=== PATIENT | female | born 1955 | race African-American/Black ===

== ENCOUNTER 2016-08-17 13:58 | Inpatient (IN) ==
[2016-08-17] MEDS ORDERED: PIPERACILLIN/TAZOBACTAM 3,375 MG in SODIUM CHLORIDE 0.9% 100 ML IV STA (14:29)
[2016-08-17] MEDS ORDERED: SODIUM CHLORIDE 0.9% 500 ML IV STA (14:29)
[2016-08-17] MEDS ORDERED: ALBUTEROL/IPRATROPIUM 3 ML NEB RESP TX STA (14:29)
--- NOTE | 2016-08-17 14:51 | XRay Report ---
XR chest 1V Indication: Shortness of breath. Fever. Chest one view: Comparison 07/08/16. Borderline cardiomegaly, calcified tortuosity thoracic aorta and mild hilar prominence is stable. There is continued interstitial prominence of the lungs diffusely, with scarring or atelectasis at the right lung base. No new infiltrates are seen. Degenerative changes of the shoulders remains severe. Impression: No acute cardio pulmonary disease with chronic changes described above, stable since 07/08/16. PROCEDURE INTERPRETED AT [facility] DEPARTMENT OF RADIOLOGY Final Report Signed by: Yong Deng M.D.
--- NOTE | 2016-08-17 14:52 | Fluoroscopy Report ---
FL injection GI tube Indication: Replaced PEG tube. Abdomen 2 views: Initial net front end developer image shows a unopacified gastrostomy feeding tube in the [id number]. The second image shows contrast injection into the feeding tube with filling of the gastric lumen and first and second segments of the duodenum. No spillage identified. Impression: Intraluminal injection of contrast. PROCEDURE INTERPRETED AT [facility] DEPARTMENT OF RADIOLOGY Final Report Signed by: Yong Deng M.D.
--- NOTE | 2016-08-17 14:58 | Emergency Department Note ---
[place], am scribing for, and in the presence of, Rhett Singh MD 14:49. [place] Bridges Charles R, MD, personally performed the services described in this documentation, ascribed by Carol Crenshaw in my presence, and it is both accurate and complete 458 . Arrival - Arrival Chief Complaint: Non-Specific Stated Complaint: peg tube problem ED Nursing Triage Note: PEG TUBE PLACED THIS SUNDAY, PT WAS SENT BACK TO ER DUE TO ECF NURSE STATED THAT HER PEG TUBE BULB WAS DEFLATED AND FEVER, PT NONVERBAL, BASELINE MENTAL STATUS PER ECF STAFF Mode of Arrival: Stretcher Limitations: No Limitations Source: EMS, Old Records Reviewed, RN Notes Reviewed Time Seen by Provider: 08/17/16 14:28 - History of Present Illness HPI Narrative: This is a 61 y/o female,who presents to the ED by EMS for further elevation of PEG Tube. Pt is non-verbal at this time, this is her normal baseline. Per ECF nurse, pt had a PEG Tube placed on 08/15/2016. She was sent back to [facility] shelter. Her ECF nurse states the PEG Tube bulb was deflated. She states pt has had a fever. Pt has no other complaints/pain in the ED at this time. Pt has a PMHx of CVA, HTN, A-fib, cardiomyopathy with Hx of EF, IDDM, dyslipidemia, recurring UTIs, GERD, and joint effusion. Pt denies a surgical Hx. Pt has a family medical Hx of heart disease and HTN. Onset (ago): day(s) (Started 3 days ago) Consistency: constant Severity: moderate Allergies/Adverse Reactions: Allergies Allergy/AdvReac Type Severity Reaction Status Date / Time No Known Allergies Allergy Verified 08/17/16 14:19 Home Medications: Home Medications Medication Instructions Recorded Confirmed Type Albuterol Neb [Proventil Neb] 1.25 mg RESP TX RT Q6H PRN neb 12/30/14 08/17/16 Rx Insulin Glargine [Lantus] 20 unit SUBCUT BEDTIME unit 12/30/14 08/17/16 Rx Insulin Lispro [HumaLOG] See Protocol SUBCUT ACHS ml 12/30/14 08/17/16 Rx Pravastatin [Pravachol] 20 mg PEG BEDTIME tablet 12/30/14 08/17/16 Rx Acetaminophen 325 mg PEG Q8H PRN 06/03/16 08/17/16 History Aspirin Chew Tab 81 mg PEG DAILY 06/03/16 08/17/16 History Cholecalciferol [Vitamin D3] 1,000 unit PEG DAILY 06/03/16 08/17/16 History Digoxin Tab [Lanoxin Tab] 0.125 mg PEG DAILY@1300 06/03/16 08/17/16 History Diltiazem Tab [Cardizem Tab] 60 mg PEG QID 06/03/16 08/17/16 History Esomeprazole Magnesium [Nexium] 40 mg PEG DAILY 06/03/16 08/17/16 History Lactulose Liquid [Chronulac] 30 ml PEG Q8H PRN 06/03/16 08/17/16 History Magnesium Hydroxide Susp [Milk of 30 ml PEG DAILY PRN 06/03/16 08/17/16 History Magnesia] Metoprolol Tartrate Tab [Lopressor 50 mg PEG BID 06/03/16 08/17/16 History Tab] Multivitamin [Multivitamins] 1 each PEG DAILY 06/03/16 08/17/16 History Warfarin Sodium 3 mg PEG 1800 06/03/16 08/17/16 History Warfarin [Coumadin] 5 mg PEG DAILY@1800 06/03/16 08/17/16 History levETIRAcetam LIQUID [Keppra 250 mg PEG BID #120 ml 06/05/16 08/17/16 Rx Liquid] Review of System - Review of System 12 point system: reviewed and no additional remarkable complaints except as stated - Review of System Constitutional: Present: fever Gastrointestinal: Present: other (PEG tube defalted) Medical,Surgical,& Family Hx - Medical History Cardio: History of: Cardiac Dysrhythmia (atrial fibrillation), CHF (EF 40% 1015) , Hypertension, Cardiovascular Problems (cardiomyopathy with history of EF of 40 % April 2014) Neurology: History of: Cerebrovascular Accident No history of: Seizures Endocrine: History of: Diabetes Mellitus (IDDM), Dyslipidemia Rheumatology: History of;: Rheumatological Problems (allegedly has arthritis and joint pain she is contracted) Genitourinary: History of: Recurring Urinary Tract Infections Gastrointestinal: History of: GERD Musculoskeletal: History of: Musculoskeletal Problems (Joint effusion) - Family History Family History: Reports;: Family Diabetes, Family Hypertension - Social History Smoking Status: Unknown if ever smoked Exam Vital Signs: Vital Signs Temperature 100.9 F H 08/17/16 14:11 Pulse Rate 147 H 08/17/16 15:03 Respiratory Rate 24 08/17/16 15:03 Blood Pressure 130/90 08/17/16 14:11 O2 Sat by Pulse Oximetry 100 08/17/16 15:03 - General General appearance: alert, in no apparent distress, other (Septic appearing, Aphasic) - Head Head exam: Present: atraumatic, normocephalic, normal inspection - Eye Eye exam: Present: normal appearance, PERRL, EOMI - ENT ENT exam: Present: mucous membranes dry - Neck Neck exam: Present: normal inspection, full ROM, trachea midline. Absent: tenderness, lymphadenopathy, thyromegaly - Chest Chest inspection: Present: normal inspection. Absent: symmetric chest wall rise , tenderness, rash, abscess - Respiratory Respiratory exam: Present: rhonchi (Bilateral ) - Cardiovascular Cardiovascular exam: Present: tachycardia - Abdominal Exam Abdominal exam: Present: soft, distention. Absent: tenderness, guarding, rebound, rigidity - Extremities Exam Extremities exam: Present: normal inspection, full ROM, normal capillary refill. Absent: tenderness, pedal edema, joint swelling, calf tenderness - Back Exam Back exam: Present: normal inspection, full ROM. Absent: tenderness, muscle spasm, rashes - Neurological Exam Neurological exam: Present: alert. Absent: normal gait, motor sensory deficit - Psychiatric Psychiatric exam: Present: normal affect, normal mood. Absent: agitated, anxious - Skin Skin exam: Present: warm, intact, normal color. Absent: diaphoresis Course Course Narrative: Feeding tube is placed in the correctly in the stomach - Consultations Consultation #1: Hospitalist will admit patient Time: 15:07 Procedures - Feeding Tube Replacement Tube Used for Reinsertion: [place] Tube Size (F): 20 Tube Secured by: tape/dressing Patient Tolerated Procedure: well, no complications Results - Labs CBC & BMP: 08/17/16 15:06 08/17/16 15:06 Lab Results: I have reviewed the patients labs Critical Care Time Critical Care Time: Yes Total Critical Care Time: 60 Disposition Clinical Impression: Fever, Sepsis, aspiration, PEG tube malfunction, Hypernatremia, Elevated troponin, Acute PR Case discussed with: patient Disposition: Still a Patient Condition: Guarded Time of Disposition: 15:11
[2016-08-17] MEDS ORDERED: ACETAMINOPHEN 325 MG SUPP RECTAL PRN (15:25)
[2016-08-17] MEDS ORDERED: ONDANSETRON 4 MG/2 ML VIAL IV PRN (15:26)
[2016-08-17 15:30] LABS: INR 1.3; PT Patient Result 13.9 SECS
--- NOTE | 2016-08-17 15:39 | EKG Report ---
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
[2016-08-17] MEDS ORDERED: METOPROLOL TARTRATE 5 MG/5 ML VIAL IV STA (15:41)
[2016-08-17] MEDS ORDERED: SODIUM CHLORIDE 0.9% 1,000 ML IV ONE (15:41)
[2016-08-17 15:43] LABS: Basophils % 0.3 % (0.0-0.8); Eosinophils # 0.1 10*3/uL (0.0-0.87); Hemoglobin 9.8 GM/DL (12.0-16.0); Immature Granulocytes % 0.4 %; Immature Granulocytes Absolute 0.04 #; Lymphocytes # 2.4 10*3/uL (1.4-4.0); Mean Corpuscular Hemoglobin 27 PG (27-34); Mean Corpuscular Volume 94.9 FL (87-102); Mean Platelet Volume 13.1 FL (9.6-12.0); Monocytes # 0.9 10*3/uL (0.11-0.8); Monocytes % 8.3 % (1.7-12.7); NRBC # 0.02 10*3/uL; Neutrophils # 7.6 10*3/uL (1.4-7.4); Platelet Count 187 T/CUMM (130-400); Red Blood Count 3.69 MC/CUMM (3.8-5.5); Red Cell Distribution Width 19.2 % (9.3-17.3); White Blood Count 11.1 T/CUMM (4-12)
[2016-08-17] MEDS ORDERED: PIPERACILLIN/TAZOBACTAM 3,375 MG VIAL IV ONE (15:43)
[2016-08-17 15:46] LABS: Albumin 3.1 G/DL (3.4-5.0); Bilirubin,Total 0.4 MG/DL (0.2-1.0); Calcium 9.1 MG/DL (8.5-10.1); Osmolality,Calculated 329.6 MOS/KG (273-304); Potassium 4.6 MMOL/L (3.5-5.1); Total Protein 8.5 G/DL (6.4-8.3)
--- NOTE | 2016-08-17 15:46 | Hospitalist History & Physical ---
Assessment and Plan - Time spent with patient Time spent with patient: Greater than 30 minutes (1) SIRS (systemic inflammatory response syndrome) Status: Acute Assessment and plan: Given her history of malfunctioning pain wondering if she possibly aspirated initial chest x-ray is negative. Patient is very tachycardic with a heart rate of 150s EKG revealed some tachycardia with a flutter appearance. At this time she was given a dose of Zosyn emergency department I will continue for now she was febrile with a documented temperature at the [facility] of 102.7 and repeat to produce you have 100.9. Will obtain blood cultures and continue to monitor along with broad-spectrum antibiotics. Current Visit: Yes (2) Atrial fibrillation Status: Chronic Assessment and plan: She does have history of chronic atrial fibrillation on chronic anticoagulation. EKG revealed irregularly rhythm with tachycardia concerning for a flutter. We'll give another bolus of normal saline just in case she is septic and a one-time dose of Lopressor to see if we can get her heart rate slowed down to get a repeat EKG to determine actual rhythm. Current Visit: No Qualifiers: Atrial fibrillation type: chronic Qualified Code(s): I48.2 - Chronic atrial fibrillation (3) Malfunction of percutaneous endoscopic gastrostomy (PEG) tube Status: Acute Current Visit: Yes (4) History of CVA (cerebrovascular accident) Status: Chronic Current Visit: No (5) Elevated troponin Status: Acute Assessment and plan: She likely has demand ischemia appears that she is clinically dry on exam and labs confirm with elevation and be in along with her having elevated sodium. She is arterial colon. Will continue her aspirin and beta michell per her PEG tube. Her INR is not therapeutic we'll give her Lovenox and also given a one- time dose of Plavix. I do not feel like she would be good candidate for any type of invasive procedures. Will discuss with family the possibility of hospice. Current Visit: Yes (6) Dehydration with hypernatremia Status: Acute Assessment and plan: Action is clinically dry with elevated sodium level. I doubt if she is getting any free water at the [facility]. I will start her on dextrose water along with free water per her PEG tube. Current Visit: Yes History of Present Illness Chief complaint: fever with elevated heart rate and disloged PEG History of present illness: Ms. Marquez is a 61 year old female several comorbidities of hypertension hyperlipidemia congestive heart failure with ejection fraction around 35-40%, history of CVA with complete expressive aphasia who was sent from the [facility] for dislodged PE. Also, there is suspicion of her being septic as there she had a documented temperature of 102.7 and was found to be tachycardic with a heart rate greater than 100. It appears that she was just discharged from here where she recently had her PEG tube replaced. Apparently it it become dislodged the [facility] and was replaced with a [place] catheter. Because of her history of CAD and complete expressive aphasia I am not up able to obtain a complete history from patient. History is obtained from [facility] and emergency room records. In the emergency room apartment she did have a temperature of 100.9 and was also found to be tachycardic with a heart rate in the 150s. She is already been given half liter of normal saline bolus and still has a heart rate around 150s. At this time an EKG had not been done. Home Medications Medication Instructions Recorded Confirmed Type Albuterol Neb [Proventil Neb] 1.25 mg RESP TX RT Q6H PRN neb 12/30/14 08/17/16 Rx Insulin Glargine [Lantus] 20 unit SUBCUT BEDTIME unit 12/30/14 08/17/16 Rx Insulin Lispro [HumaLOG] See Protocol SUBCUT ACHS ml 12/30/14 08/17/16 Rx Pravastatin [Pravachol] 20 mg PEG BEDTIME tablet 12/30/14 08/17/16 Rx Acetaminophen 325 mg PEG Q8H PRN 06/03/16 08/17/16 History Aspirin Chew Tab 81 mg PEG DAILY 06/03/16 08/17/16 History Cholecalciferol [Vitamin D3] 1,000 unit PEG DAILY 06/03/16 08/17/16 History Digoxin Tab [Lanoxin Tab] 0.125 mg PEG DAILY@1300 06/03/16 08/17/16 History Diltiazem Tab [Cardizem Tab] 60 mg PEG QID 06/03/16 08/17/16 History Esomeprazole Magnesium [Nexium] 40 mg PEG DAILY 06/03/16 08/17/16 History Lactulose Liquid [Chronulac] 30 ml PEG Q8H PRN 06/03/16 08/17/16 History Magnesium Hydroxide Susp [Milk of 30 ml PEG DAILY PRN 06/03/16 08/17/16 History Magnesia] Metoprolol Tartrate Tab [Lopressor 50 mg PEG BID 06/03/16 08/17/16 History Tab] Multivitamin [Multivitamins] 1 each PEG DAILY 06/03/16 08/17/16 History Warfarin Sodium 3 mg PEG 1800 06/03/16 08/17/16 History Warfarin [Coumadin] 5 mg PEG DAILY@1800 06/03/16 08/17/16 History levETIRAcetam LIQUID [Keppra 250 mg PEG BID #120 ml 06/05/16 08/17/16 Rx Liquid] Allergies Allergy/AdvReac Type Severity Reaction Status Date / Time No Known Allergies Allergy Verified 08/17/16 14:19 Medical,Surgical,& Family Hx - Medical History Cardio: History of: Cardiac Dysrhythmia (atrial fibrillation), CHF (EF 40% 1014) , Hypertension, Cardiovascular Problems (cardiomyopathy with history of EF of 40 % April 2014) Neurology: History of: Cerebrovascular Accident No history of: Seizures Endocrine: History of: Diabetes Mellitus (IDDM), Dyslipidemia Rheumatology: History of;: Rheumatological Problems (allegedly has arthritis and joint pain she is contracted) Genitourinary: History of: Recurring Urinary Tract Infections Gastrointestinal: History of: GERD Musculoskeletal: History of: Musculoskeletal Problems (Joint effusion) - Surgical History Cardiac Surgeries: Sugical HX of: Cardiac Catheterization Abdominal Surgeries: Surgical HX of: EGD - Family History Family History: Reports;: Family Diabetes, Family Hypertension - Social History Smoking Status: Unknown if ever smoked Frequency of Alcohol Use: None Type of Drug Use: None Marital Status: Lives With:: [facility] Functional capacity: bed bound ROS unobtainable: other (unable to obtain seondary to complete expressive aphasia) Exam - Constitutional Vitals: Period Temp Pulse Resp BP Sys/Jasmine Pulse Ox Last 24 Hr 100.9 F-100.9 F 140-148 24-38 130-130/90-90 97-100 General appearance: no acute distress Exam: chronically deblitated appearing female in ER bed 15 - Head Head exam: Present: normocephalic, atraumatic - Eye Pupils: Present: JUDE - Respiratory Respiratory exam: Present: clear to auscultation bilaterally - Cardiovascular Cardiovascular exam: Present: regular rate and rhythm, tachycardia - GI/Abdominal GI/Abdominal exam: Present: normal bowel sounds, soft - Neurological Exam Neurological exam: Present: alert - Skin Skin exam: Present: warm, intact Results - Labs CBC & BMP: 08/18/16 06:04 08/18/16 06:04 Sepsis - Physical Exam Respiratory exam: clear to auscultation bilaterally Cardiovascular exam: tachycardia
[2016-08-17] MEDS ORDERED: DIGOXIN 0.5 MG/2 ML AMP IV ONE (16:03)
[2016-08-17 16:23] LABS: CKMB % 3.5 %
[2016-08-17 16:26] LABS: Troponin I Only 10.5 NG/ML (0.00-0.045)
[2016-08-17] MEDS ORDERED: ENOXAPARIN 80 MG/0.8 ML SYRINGE SUBCUT STA (16:33)
[2016-08-17] MEDS ORDERED: DIGOXIN 0.5 MG/2 ML AMP ONE (16:41)
[2016-08-17] MEDS ORDERED: METOPROLOL TARTRATE 5 MG/5 ML VIAL IV ONE (16:42)
[2016-08-17] MEDS ORDERED: WARFARIN 3 MG TABLET PEG SCH (19:27)
[2016-08-17] MEDS ORDERED: ALBUTEROL 1.25 MG/3 ML NEB RESP TX PRN (19:27)
[2016-08-17] MEDS ORDERED: DILTIAZEM 50 MG/10 ML VIAL IV STA (19:27)
[2016-08-17] MEDS ORDERED: WARFARIN 5 MG TABLET PEG SCH (19:27)
[2016-08-17 21:08] LABS: CKMB % 3.6 %
[2016-08-17] MEDS: DEXTROSE 5% 1,000 ML IV SCH (21:44)
[2016-08-17] MEDS: PIPERACILLIN/TAZOBACTAM 3,375 MG in SODIUM CHLORIDE 0.9% 100 ML IV SCH (23:06)
[2016-08-17] MEDS: METOPROLOL TARTRATE 25 MG TABLET PEG SCH (23:08)
[2016-08-17] MEDS: PRAVASTATIN 20 MG TABLET PEG SCH (23:08)
[2016-08-17] MEDS: DILTIAZEM 60 MG TABLET PO SCH (23:08)
[2016-08-17] MEDS: levETIRAcetam LIQUID 100 MG/ML 30 ML/BOTTLE PEG SCH (23:08)
[2016-08-18] MEDS: PIPERACILLIN/TAZOBACTAM 3,375 MG in SODIUM CHLORIDE 0.9% 100 ML IV SCH ×4 (00:02→23:48)
[2016-08-18] MEDS ORDERED: ENOXAPARIN 80 MG/0.8 ML SYRINGE SUBCUT SCH (05:00)
[2016-08-18 06:53] LABS: Calcium 8.3 MG/DL (8.5-10.1); Magnesium 2.5 MG/DL (1.8-2.4); Osmolality,Calculated 328.3 MOS/KG (273-304); Potassium 4.1 MMOL/L (3.5-5.1)
[2016-08-18 06:57] LABS: Risk Ratio 2.45
[2016-08-18 07:02] LABS: Basophils % 0.2 % (0.0-0.8); Eosinophils # 0.1 10*3/uL (0.0-0.87); Eosinophils % 0.6 % (0.00-10.9); Hemoglobin 8.4 GM/DL (12.0-16.0); Immature Granulocytes % 0.2 %; Immature Granulocytes Absolute 0.02 #; Lymphocytes # 2.8 10*3/uL (1.4-4.0); Lymphocytes % 28.2 % (21.3-54.2); Mean Corpuscular HGB Conc 27.5 GM/DL (32-36); Mean Corpuscular Hemoglobin 27 PG (27-34); Mean Corpuscular Volume 97.5 FL (87-102); Mean Platelet Volume 12.9 FL (9.6-12.0); Monocytes % 9.9 % (1.7-12.7); NRBC # 0.02 10*3/uL; Neutrophils % 60.9 % (38.7-73.9); Platelet Count 148 T/CUMM (130-400); Red Blood Count 3.14 MC/CUMM (3.8-5.5); Red Cell Distribution Width 19.4 % (9.3-17.3); White Blood Count 9.8 T/CUMM (4-12)
[2016-08-18 07:03] LABS: Troponin I Only 11.8 NG/ML (0.00-0.045)
[2016-08-18 07:04] LABS: Hematocrit 30.6 VOL% (35.7-47.0)
[2016-08-18 07:05] LABS: Hypochromasia 1+
[2016-08-18 07:06] LABS: Macrocytosis 1+; Platelet Estimate Adequate
--- NOTE | 2016-08-18 07:43 | Physician Query Form ---
CLICK EDIT DOCUMENT TO SELECT QUERY ANSWER --> OK --> SIGN Phylicia Goldman RN, CCDS Certified Clinical Fly Worker W) [phone] (f) [phone] [email or web address] PROVIDERS: Make your selection(s) from the choices in EACH section by typing an "x" and enter comments in the comment section. Please use your independent medical judgment in providing your response. This request does not imply that any particular answer is desired or expected. CLINICAL INDICATORS: (Providers should not edit this section) The below diagnosis was documented in the record, but is not consistently noted in subsequent documentation. The medical record indicates that the patient was admitted with a PEG tube malfunction, "very tachycardic with a heart rate of 150s", Impression in the ER acute MT and Troponin of 10.50 that has increased to 11.800. In your clinical opinion can you please clarify if the MT was ? Diagnosis: MT Please clarify the following: ( ) The above diagnosis was monitored, evaluated, and/or treated and is a confirmed diagnosis ( ) The above diagnosis was ruled out ( x) The above diagnosis is still a likely, suspected, probable diagnosis ( ) Other, please specify: ( ) Clinically unable to determine COMMENTS: likely secondary from demand ischemia given her being dehydrated with elevated sodium. Use of terms such as suspected, likely, or probable (associated with a specific diagnosis that is being evaluated, monitored, or treated as if it exists) are acceptable and can be restated in the discharge summary if not ruled out. MTDD
--- NOTE | 2016-08-18 09:22 | Cardiology Consult Note ---
Assessment and Plan - Time spent with patient Time spent with patient: Greater than 30 minutes (Documentation, chart review examination) (1) Dehydration Status: Acute Current Visit: Yes (2) Febrile illness Status: Acute Current Visit: Yes (3) Elevated troponin Status: Acute Assessment and plan: This patient has a history of cardiomyopathy and has severely volume contracted and acutely ill at this time with a modestly elevated troponin in the face of extreme volume contraction and renal insufficiency. This most likely represents type 2 demand ischemia and subsequent non-ST elevation myocardial infarction. I recommend beta-blockers aspirin and supportive measures. She is nonverbal she is DNR she is in the position. No further workup at this time. Current Visit: Yes (4) Hypernatremia Status: Acute Current Visit: Yes (5) Malfunction of percutaneous endoscopic gastrostomy (PEG) tube Status: Acute Current Visit: Yes (6) Atrial fibrillation Status: Chronic Current Visit: No Qualifiers: Atrial fibrillation type: chronic Qualified Code(s): I48.2 - Chronic atrial fibrillation History of Present Illness - Data of Consult Patient: new to practice Consult date: 08/18/16 Requesting Physician: Jessy Colon - Consult Narrative Reason for consult: Abnormal troponin History of present illness: Ms. Marquez is a 61 year old female who is unresponsive in the position when I examined her. Apparently she has had a stroke and relies on a PEG tube for enteral nutrition does not walk. I have reviewed her chart. She has a low ejection fraction of 35% plus or minus according to Dr. Colon's note and is admitted now with malfunctioning PEG tube. She also was found to have a febrile illness. She was tachycardic and had ECGs and troponins. We are asked to see for elevated troponin. The patient is noncommunicative there is no one at the bedside and she is nonambulatory. She is in the position in the right lateral decubitus position and does not respond to verbal stimuli. I have reviewed her ECGs which show what appears to be supraventricular tachycardia it looks as though it sinus heart rate in the low 150s she has some ST elevation that is likely due to rate and LVH. Is not diagnostic of ST elevation myocardial infarction. The patient's troponin is also elevated. She is febrile and has leukocytosis. She also is anemic and appears to be significantly volume contracted with a sodium of 162. Her white cell count has come down since she has been here with antibiotics. CC: Jessy Colon MD - Home Medications and Allergies Home Medications: Home Medications Medication Instructions Recorded Confirmed Type Albuterol Neb [Proventil Neb] 1.25 mg RESP TX RT Q6H PRN neb 12/30/14 08/17/16 Rx Insulin Glargine [Lantus] 20 unit SUBCUT BEDTIME unit 12/30/14 08/17/16 Rx Insulin Lispro [HumaLOG] See Protocol SUBCUT ACHS ml 12/30/14 08/17/16 Rx Pravastatin [Pravachol] 20 mg PEG BEDTIME tablet 12/30/14 08/17/16 Rx Acetaminophen 325 mg PEG Q8H PRN 06/03/16 08/17/16 History Aspirin Chew Tab 81 mg PEG DAILY 06/03/16 08/17/16 History Cholecalciferol [Vitamin D3] 1,000 unit PEG DAILY 06/03/16 08/17/16 History Digoxin Tab [Lanoxin Tab] 0.125 mg PEG DAILY@1300 06/03/16 08/17/16 History Diltiazem Tab [Cardizem Tab] 60 mg PEG QID 06/03/16 08/17/16 History Esomeprazole Magnesium [Nexium] 40 mg PEG DAILY 06/03/16 08/17/16 History Lactulose Liquid [Chronulac] 30 ml PEG Q8H PRN 06/03/16 08/17/16 History Magnesium Hydroxide Susp [Milk of 30 ml PEG DAILY PRN 06/03/16 08/17/16 History Magnesia] Metoprolol Tartrate Tab [Lopressor 50 mg PEG BID 06/03/16 08/17/16 History Tab] Multivitamin [Multivitamins] 1 each PEG DAILY 06/03/16 08/17/16 History Warfarin Sodium 3 mg PEG 1800 06/03/16 08/17/16 History Warfarin [Coumadin] 5 mg PEG DAILY@1800 06/03/16 08/17/16 History levETIRAcetam LIQUID [Keppra 250 mg PEG BID #120 ml 06/05/16 08/17/16 Rx Liquid] Allergies/Adverse Reactions: Allergies Allergy/AdvReac Type Severity Reaction Status Date / Time No Known Allergies Allergy Verified 08/17/16 14:19 ROS unobtainable: due to mental status Medical,Surgical,& Family Hx - Medical History Cardio: History of: Cardiac Dysrhythmia (atrial fibrillation), CHF, Hypertension , Cardiovascular Problems (cardiomyopathy with history of EF of 40% April 2014 ) Neurology: History of: Cerebrovascular Accident No history of: Seizures Endocrine: History of: Diabetes Mellitus (IDDM), Dyslipidemia Rheumatology: History of;: Rheumatological Problems (allegedly has arthritis and joint pain she is contracted) Genitourinary: History of: Recurring Urinary Tract Infections Gastrointestinal: History of: GERD Musculoskeletal: History of: Musculoskeletal Problems (Joint effusion) - Surgical History Cardiac Surgeries: Sugical HX of: Cardiac Catheterization Abdominal Surgeries: Surgical HX of: EGD - Family History Family History: Reports;: Family Diabetes, Family Hypertension - Social History Smoking Status: Unknown if ever smoked Frequency of Alcohol Use: None Type of Drug Use: None Functional capacity: bed bound Physical Examination Vital Signs Temp Pulse Resp BP Pulse Ox 100.9 F H 140 H 38 H 130/90 98 08/17/16 14:11 08/17/16 14:11 08/17/16 14:11 08/17/16 14:11 08/17/16 14:11 General: Present: Other (Chronically ill appearing in the position with very dry membranes and very poor skin turgor) HEENT: Present: Other (Temporal atrophy very dry mucous membranes she resists when I try to open her eyelids.) Cardiac: Present: Regular Rate, S1/S2, Tachycardia (Right was about 140. PMI appears to be laterally displaced anterior precordium is hyperdynamic) Lungs: Present: Other (Clear with quiet respirations noncooperative for full exam) Neuro: Present: Other (No significant neurologic response with verbal stimuli noxious stimuli gives a grimace) Gait: Present: Other (Unable to ambulate) Extremities: Present: Other (Contracted in both heels stress bilaterally. I did not undress the) Result/EKG - Labs CBC & BMP: 08/18/16 06:04 08/18/16 06:04 Labs: Laboratory Results - last 24 hr 08/17/16 08/17/16 08/18/16 19:37 20:04 06:04 WBC RBC Hgb Hct MCV MCH MCHC RDW Plt Count MPV Neut % (Auto) Lymph % (Auto) [place] % (Auto) Eos % (Auto) Baso % (Auto) Neut # (Auto) Lymph # (Auto) [place] # (Auto) Eos # (Auto) Baso # (Auto) Immature Gran % Nucleated RBC % Immature Gran # Nucleated RBCs # Platelet Estimate Hypochromasia Macrocytosis Morphology Comment Sodium Potassium Chloride Carbon Dioxide Anion Gap BUN Creatinine GFR Calculation BUN/Creatinine Ratio Glucose POC Glucose 132 H Calculated Osmolality Calcium Magnesium Total Creatine Kinase 574 H CK-MB (CK-2) 20.5 H CK and CKMB Interp 3.6 Troponin I Triglycerides 110 Cholesterol 103 LDL Cholesterol 53.0 VLDL Cholesterol 22.0 HDL Cholesterol 42 Heart Disease Risk Ratio 2.45 08/18/16 08/18/16 08/18/16 06:04 06:04 06:04 WBC 9.8 RBC 3.14 L Hgb 8.4 L Hct 30.6 L MCV 97.5 MCH 27 MCHC 27.5 L RDW 19.4 H Plt Count 148 D MPV 12.9 H Neut % (Auto) 60.9 Lymph % (Auto) 28.2 [place] % (Auto) 9.9 Eos % (Auto) 0.6 Baso % (Auto) 0.2 Neut # (Auto) 6.0 Lymph # (Auto) 2.8 [place] # (Auto) 1.0 H Eos # (Auto) 0.1 Baso # (Auto) 0.0 Immature Gran % 0.2 Nucleated RBC % 0.2 Immature Gran # 0.02 Nucleated RBCs # 0.02 Platelet Estimate Adequate Hypochromasia 1+ Macrocytosis 1+ Morphology Comment Sodium 162 H* Potassium 4.1 Chloride 129 H Carbon Dioxide 24 Anion Gap 13.1 BUN 34 H D Creatinine 1.20 H GFR Calculation 64 BUN/Creatinine Ratio 28.00 H Glucose 114 H POC Glucose Calculated Osmolality 328.3 H Calcium 8.3 L Magnesium 2.5 H Total Creatine Kinase 794 H D CK-MB (CK-2) CK and CKMB Interp Troponin I 11.800 H Triglycerides Cholesterol LDL Cholesterol VLDL Cholesterol HDL Cholesterol Heart Disease Risk Ratio - EKG EKG results: interpreted by me (Looks like sinus tachycardia or some type of supraventricular tachycardia) Specialty Discharge - Follow Up or Referrals
[2016-08-18] MEDS: levETIRAcetam LIQUID 100 MG/ML 30 ML/BOTTLE PEG SCH ×2 (09:49→21:12)
[2016-08-18] MEDS: METOPROLOL TARTRATE 25 MG TABLET PEG SCH ×2 (09:50→21:13)
[2016-08-18] MEDS: DILTIAZEM 60 MG TABLET PO SCH ×4 (09:50→21:13)
[2016-08-18] MEDS: CLOPIDOGREL 75 MG TABLET PO SCH (09:51)
[2016-08-18] MEDS: ASPIRIN CHEW 81 MG TABLET PO SCH (09:51)
--- NOTE | 2016-08-18 11:32 | Hospitalist Progress Note ---
Assessment and Plan (1) SIRS (systemic inflammatory response syndrome) Status: Acute Assessment and plan: Given her history of malfunctioning pain wondering if she possibly aspirated initial chest x-ray is negative. Patient is very tachycardic with a heart rate of 150s EKG revealed some tachycardia with a flutter appearance. At this time she was given a dose of Zosyn emergency department I will continue for now she was febrile with a documented temperature at the assisted of 102.7 and repeat to produce you have 100.9. Will obtain blood cultures and continue to monitor along with broad-spectrum antibiotics. 08/18/16: There is still no obvious source of infection. She was placed on Zosyn. It appears that she did have elevation in her cardiac enzymes which I do agree with cardiology this is likely demand ischemia. We'll continue Zosyn for now. We did speak with family and they've agreed to pursue hospice which I agree with. Current Visit: Yes (2) Atrial fibrillation Status: Chronic Assessment and plan: She does have history of chronic atrial fibrillation on chronic anticoagulation. EKG revealed irregularly rhythm with tachycardia concerning for a flutter. We'll give another bolus of normal saline just in case she is septic and a one-time dose of Lopressor to see if we can get her heart rate slowed down to get a repeat EKG to determine actual rhythm. Current Visit: No Qualifiers: Atrial fibrillation type: chronic Qualified Code(s): I48.2 - Chronic atrial fibrillation (3) Malfunction of percutaneous endoscopic gastrostomy (PEG) tube Status: Acute Current Visit: Yes (4) History of CVA (cerebrovascular accident) Status: Chronic Current Visit: No (5) Dehydration Status: Acute Current Visit: Yes (6) Hypernatremia Status: Acute Assessment and plan: started on D5 as she was given normal saline bolus in the ER Current Visit: Yes (7) Elevated troponin Status: Acute Assessment and plan: likely demand ischemia and already on ASA and a beta michell Current Visit: Yes (8) Encounter for hospice care discussion Status: Acute Current Visit: Yes (9) Transition from hospice to acute care Status: Acute Current Visit: Yes Hospitalist: Subjective Interval history: This 61-year-old female with a history of CVA in the past causing complete expressive aphasia. She was brought in yesterday with a fever and was found to have a heart rate around 155. Her cardiac enzymes returned elevated which cardiology has seen patient thinks this is more demand ischemia in light of her being volume depleted. We did speak with the patient's siblings and they have agreed to make her hospice as overall she has a very poor prognosis. She is arterial aspirin and a beta michell which these will be continued at this time. Exam - Constitutional Vitals: Period Temp Pulse Resp BP Sys/Jasmine Pulse Ox Last 24 Hr 97.5 F-100.6 F 71-128 20-28 95-123/45-60 96-100 General appearance: no acute distress - Head Head exam: Present: normocephalic, atraumatic - Respiratory Respiratory exam: Present: clear to auscultation bilaterally - Cardiovascular Cardiovascular exam: Present: regular rate and rhythm - GI/Abdominal GI/Abdominal exam: Present: hypoactive bowel sounds, soft - Extremities Exam Extremities exam: Present: other (contractures) - Skin Skin exam: Present: warm, dry, other (ulcer of foot) Results - Labs CBC & BMP: 08/18/16 06:04 08/18/16 06:04 Specialty Discharge - Follow Up or Referrals
[2016-08-18] MEDS: DEXTROSE 5% 1,000 ML IV SCH ×2 (11:48→23:49)
[2016-08-18] MEDS: DIGOXIN 0.125 MG TABLET PEG SCH (14:31)
[2016-08-18] MEDS: VANCOMYCIN INJ 1,500 MG in SODIUM CHLORIDE 0.9% 500 ML IV SCH (15:16)
[2016-08-18] MEDS ORDERED: ACETAMINOPHEN 325 MG TABLET ONE (17:01)
[2016-08-18] MEDS: WARFARIN 4 MG TABLET PO SCH (17:10)
[2016-08-18] MEDS ORDERED: ACETAMINOPHEN 325 MG TABLET PO PRN (17:52)
[2016-08-18] MEDS: PRAVASTATIN 20 MG TABLET PEG SCH (21:13)
[2016-08-19 06:03] LABS: Calcium 8.1 MG/DL (8.5-10.1); Magnesium 2.4 MG/DL (1.8-2.4); Osmolality,Calculated 318.9 MOS/KG (273-304); Potassium 4.2 MMOL/L (3.5-5.1)
[2016-08-19] MEDS: PIPERACILLIN/TAZOBACTAM 3,375 MG in SODIUM CHLORIDE 0.9% 100 ML IV SCH ×3 (08:42→22:54)
[2016-08-19] MEDS: METOPROLOL TARTRATE 25 MG TABLET PEG SCH ×2 (08:43→22:55)
[2016-08-19] MEDS: ASPIRIN CHEW 81 MG TABLET PO SCH (08:43)
[2016-08-19] MEDS: DILTIAZEM 60 MG TABLET PO SCH ×4 (08:43→22:55)
[2016-08-19] MEDS: CLOPIDOGREL 75 MG TABLET PO SCH (08:43)
[2016-08-19] MEDS: levETIRAcetam LIQUID 100 MG/ML 30 ML/BOTTLE PEG SCH ×2 (08:44→22:54)
[2016-08-19] MEDS: VANCOMYCIN INJ 1,500 MG in SODIUM CHLORIDE 0.9% 500 ML IV SCH (09:39)
[2016-08-19] MEDS: DEXTROSE 5% 1,000 ML IV SCH (10:57)
[2016-08-19 11:53] LABS: Basophils % 0.3 % (0.0-0.8); Eosinophils # 0.3 10*3/uL (0.0-0.87); Eosinophils % 3.4 % (0.00-10.9); Hematocrit 24.3 VOL% (35.7-47.0); Immature Granulocytes % 0.3 %; Immature Granulocytes Absolute 0.02 #; Lymphocytes % 27.8 % (21.3-54.2); Mean Corpuscular Hemoglobin 27 PG (27-34); Mean Corpuscular Volume 94.9 FL (87-102); Mean Platelet Volume 13.1 FL (9.6-12.0); Monocytes # 0.7 10*3/uL (0.11-0.8); Monocytes % 9.1 % (1.7-12.7); NRBC # 0.02 10*3/uL; Neutrophils # 4.3 10*3/uL (1.4-7.4); Neutrophils % 59.1 % (38.7-73.9); Platelet Count 131 T/CUMM (130-400); Red Blood Count 2.56 MC/CUMM (3.8-5.5); Red Cell Distribution Width 19.1 % (9.3-17.3); White Blood Count 7.3 T/CUMM (4-12)
[2016-08-19 11:59] LABS: Hemoglobin 6.8 GM/DL (12.0-16.0)
[2016-08-19 12:18] LABS: Hypochromasia 1+; Macrocytosis 1+; Platelet Estimate Normal
[2016-08-19 12:24] LABS: Calcium 7.7 MG/DL (8.5-10.1); Osmolality,Calculated 310.3 MOS/KG (273-304); Potassium 4.1 MMOL/L (3.5-5.1)
--- NOTE | 2016-08-19 13:31 | Hospitalist Progress Note ---
Assessment and Plan (1) Sepsis due to Gram negative bacteria Problem details: Blood growing Gram-negative bacteria Status: Acute Current Visit: Yes (2) Debility, unspecified Status: Acute Current Visit: Yes (3) Atrial fibrillation Status: Chronic Current Visit: No Qualifiers: Atrial fibrillation type: chronic Qualified Code(s): I48.2 - Chronic atrial fibrillation (4) Malfunction of percutaneous endoscopic gastrostomy (PEG) tube Status: Acute Assessment and plan: Adjusted and on tube feeding Current Visit: Yes (5) Encounter for hospice care discussion Status: Acute Assessment and plan: We'll discuss with family and case management regarding hospice Current Visit: Yes (6) Elevated troponin Status: Acute Assessment and plan: Seen by cardiology and this could be likely to increased demand ischemia currently due to sepsis and acute kidney insufficiency, continue with medications Current Visit: Yes (7) Dehydration with hypernatremia Status: Acute Current Visit: Yes (8) Arthritis Status: Acute Current Visit: No (9) History of CVA (cerebrovascular accident) Status: Chronic Current Visit: No Hospitalist: Subjective Interval history: No acute events reported overnight. Patient nonverbal and does not follow commands. Family members visiting. ROS unobtainable due to patient's condition. Exam - Constitutional Vitals: Period Temp Pulse Resp BP Sys/Jasmine Pulse Ox Last 24 Hr 98.1 F-101.0 F 67-86 18-20 101-135/45-54 91-99 Exam: Gen: a&ox0, NAD neck: no JVD heart: RRR, IRR lung: cta anteriorly, no wheezing abd: PEG T in place on TF, BS present EXt: Carl dressed distally, in position skin: warm, dry HEENT: PERRL psych: Nonverbal Results - Labs CBC & BMP: 08/19/16 11:26 08/19/16 11:26 Specialty Discharge - Follow Up or Referrals
[2016-08-19] MEDS: DIGOXIN 0.125 MG TABLET PEG SCH (13:38)
[2016-08-19] MEDS: WARFARIN 4 MG TABLET PO SCH (18:18)
[2016-08-19] MEDS: PRAVASTATIN 20 MG TABLET PEG SCH (22:56)
[2016-08-20] MEDS: DEXTROSE 5% 1,000 ML IV SCH ×2 (05:37→18:31)
[2016-08-20] MEDS: VANCOMYCIN INJ 1,500 MG in SODIUM CHLORIDE 0.9% 500 ML IV SCH (05:41)
[2016-08-20 07:41] LABS: Basophils % 0.1 % (0.0-0.8); Eosinophils # 0.3 10*3/uL (0.0-0.87); Eosinophils % 3.5 % (0.00-10.9); Hematocrit 21.8 VOL% (35.7-47.0); Immature Granulocytes % 0.2 %; Immature Granulocytes Absolute 0.02 #; Lymphocytes # 1.8 10*3/uL (1.4-4.0); Lymphocytes % 22.6 % (21.3-54.2); Mean Corpuscular HGB Conc 27.5 GM/DL (32-36); Mean Corpuscular Hemoglobin 27 PG (27-34); Mean Corpuscular Volume 96.9 FL (87-102); Mean Platelet Volume 13.1 FL (9.6-12.0); Monocytes # 0.7 10*3/uL (0.11-0.8); Monocytes % 8.9 % (1.7-12.7); NRBC # 0.03 10*3/uL; Neutrophils # 5.2 10*3/uL (1.4-7.4); Neutrophils % 64.7 % (38.7-73.9); Platelet Count 132 T/CUMM (130-400); Red Blood Count 2.25 MC/CUMM (3.8-5.5); Red Cell Distribution Width 19.2 % (9.3-17.3); White Blood Count 8.1 T/CUMM (4-12)
[2016-08-20 08:06] LABS: Potassium 4.2 MMOL/L (3.5-5.1)
[2016-08-20 08:30] LABS: Elliptocytes Few; Hypochromasia 1+; Platelet Estimate Normal
[2016-08-20] MEDS: PIPERACILLIN/TAZOBACTAM 3,375 MG in SODIUM CHLORIDE 0.9% 100 ML IV SCH ×3 (09:33→23:46)
[2016-08-20] MEDS: levETIRAcetam LIQUID 100 MG/ML 30 ML/BOTTLE PEG SCH ×2 (09:33→22:13)
[2016-08-20] MEDS: DILTIAZEM 60 MG TABLET PO SCH (09:33)
[2016-08-20] MEDS: METOPROLOL TARTRATE 25 MG TABLET PEG SCH ×2 (09:33→22:12)
[2016-08-20] MEDS: CLOPIDOGREL 75 MG TABLET PO SCH (09:33)
[2016-08-20] MEDS: ASPIRIN CHEW 81 MG TABLET PO SCH (09:33)
--- NOTE | 2016-08-20 09:39 | Hospitalist Progress Note ---
Assessment and Plan (1) Sepsis due to Gram negative bacteria Problem details: Blood growing Gram-negative bacteria Status: Acute Assessment and plan: Continue with Antibiotics Current Visit: Yes (2) Debility, unspecified Status: Acute Current Visit: Yes (3) Normocytic anemia Problem details: Worsening this morning. Status: Acute Assessment and plan: No blood thinners or antiplatelet medications. Type and cross on blood transfusion and IV fluid. Discussed with the family goals of care. Check PT and PTT. Current Visit: Yes (4) Atrial fibrillation Status: Chronic Assessment and plan: No anticoagulation Current Visit: No Qualifiers: Atrial fibrillation type: chronic Qualified Code(s): I48.2 - Chronic atrial fibrillation (5) Malfunction of percutaneous endoscopic gastrostomy (PEG) tube Status: Acute Assessment and plan: Adjusted and on tube feeding Current Visit: Yes (6) Encounter for hospice care discussion Status: Acute Assessment and plan: We'll discuss with family and case management regarding hospice Current Visit: Yes (7) Elevated troponin Status: Acute Assessment and plan: Seen by cardiology and this could be likely to increased demand ischemia currently due to sepsis and acute kidney insufficiency, continue with medications Current Visit: Yes (8) Dehydration with hypernatremia Status: Acute Current Visit: Yes (9) History of CVA (cerebrovascular accident) Status: Chronic Current Visit: No (10) Arthritis Status: Acute Current Visit: No Hospitalist: Subjective Interval history: Patient noncommunicative, arousable, no family members present in the room. ROS unobtainable because of the patient's medical condition currently. No acute events reported overnight. Exam - Constitutional Vitals: Period Temp Pulse Resp BP Sys/Jasmine Pulse Ox Last 24 Hr 97.6 F-99.3 F 62-74 18-20 102-135/48-61 95-99 Exam: Gen: a&ox0, NAD neck: no JVD heart: RRR, IRR lung: cta anteriorly, no wheezing abd: PEG T in place on TF, BS present EXt: Carl dressed distally, in position skin: warm, dry HEENT: PERRL psych: Nonverbal Results - Labs CBC & BMP: 08/20/16 06:56 08/20/16 06:56 Specialty Discharge - Follow Up or Referrals
[2016-08-20 10:24] LABS: INR 1.7; PT Patient Result 18.2 SECS; Partial Thromboplastin Time 31.3 SECS (0-40)
[2016-08-20] MEDS ORDERED: SODIUM CHLORIDE 0.9% 250 ML IV PRN (10:27)
[2016-08-20] MEDS ORDERED: PHYTONADIONE 5 MG TABLET PO ONE (15:17)
[2016-08-20] MEDS: DIGOXIN 0.125 MG TABLET PEG SCH (18:32)
[2016-08-20] MEDS: PRAVASTATIN 20 MG TABLET PEG SCH (22:13)
[2016-08-21] MEDS: DEXTROSE 5% 1,000 ML IV SCH (06:53)
[2016-08-21] MEDS ORDERED: VANCOMYCIN INJ 1,500 MG in SODIUM CHLORIDE 0.9% 500 ML IV SCH (09:00)
[2016-08-21] MEDS: PIPERACILLIN/TAZOBACTAM 3,375 MG in SODIUM CHLORIDE 0.9% 100 ML IV SCH ×2 (09:45→15:50)
[2016-08-21] MEDS: METOPROLOL TARTRATE 25 MG TABLET PEG SCH (09:46)
[2016-08-21] MEDS: DIGOXIN 0.125 MG TABLET PEG SCH ×2 (09:46→12:01)
[2016-08-21] MEDS: ASPIRIN CHEW 81 MG TABLET PO SCH (09:46)
[2016-08-21] MEDS: levETIRAcetam LIQUID 100 MG/ML 30 ML/BOTTLE PEG SCH (09:47)
--- NOTE | 2016-08-21 11:18 | Physician Query Form ---
CLICK EDIT DOCUMENT TO SELECT QUERY ANSWER --> OK --> SIGN Phylicia Goldman RN, CCDS Certified Clinical Math And Physics Instructor W) [phone] (f) [phone] [email or web address]: Make your selection(s) from the choices in EACH section by typing an "x" and enter comments in the comment section. Please use your independent medical judgment in providing your response. This request does not imply that any particular answer is desired or expected. CLINICAL INDICATORS: (Providers should not edit this section) The medical record indicates that the patient was admitted with a Peg malfunction, "allegedly has arthritis and joint pain she is contracted", "PEG tube", "CVA with complete expressive aphasia", "unresponsive in the position when I examined her", "noncommunicative", "nonambulatory", "Bedbound" , "ulcer of foot", "Left Dorsal Foot Stage III", "Right Dorsal Foot III", Hygiene Ability "Total Care", Feeding Ability "Total Care" and Ambulation Ability "Total Care". Which, if any, of the following is an etiology of the above abnormalities and treatment rendered: ( ) Functional quadriplegia (complete immobility due to severe physical disability or frailty due to non-neurologic cause) ( x) Quadriplegia due to a neurologic cause, please specify: ( ) Paraplegia due to a neurologic cause, please specify: ( ) Hemiplegia/hemiparesis due to a neurologic cause, please specify: ( ) Complete Immobility (due to frailty or severe physical disability) ( ) Persistent vegetative state ( ) Critical illness myopathy (difficulty weaning patients from mechanical ventilation or prolonged recovery after illness) ( ) General weakness (x ) Other cause, please specify: Patient is nonverbal with reported history of strokes and severe debility and dysphagia ( ) Clinically unable to determine COMMENTS: Use of terms such as suspected, likely, or probable (associated with a specific diagnosis that is being evaluated, monitored, or treated as if it exists) are acceptable and can be restated in the discharge summary if not ruled out. MTDD
[2016-08-21 11:40] LABS: Basophils % 0.6 % (0.0-0.8); Eosinophils # 0.2 10*3/uL (0.0-0.87); Eosinophils % 4.2 % (0.00-10.9); Hematocrit 30.6 VOL% (35.7-47.0); Immature Granulocytes % 0.6 %; Immature Granulocytes Absolute 0.03 #; Lymphocytes # 1.1 10*3/uL (1.4-4.0); Lymphocytes % 20.2 % (21.3-54.2); Mean Corpuscular HGB Conc 30.4 GM/DL (32-36); Mean Corpuscular Hemoglobin 28 PG (27-34); Mean Corpuscular Volume 92.4 FL (87-102); Monocytes # 0.7 10*3/uL (0.11-0.8); Monocytes % 13.1 % (1.7-12.7); NRBC # 0.04 10*3/uL; Neutrophils # 3.2 10*3/uL (1.4-7.4); Neutrophils % 61.3 % (38.7-73.9); Platelet Count 114 T/CUMM (130-400); Red Cell Distribution Width 17.2 % (9.3-17.3)
[2016-08-21 11:47] LABS: Red Blood Count 3.31 MC/CUMM (3.8-5.5); White Blood Count 5.2 T/CUMM (4-12)
[2016-08-21 11:48] LABS: Hemoglobin 9.3 GM/DL (12.0-16.0)
[2016-08-21 11:50] LABS: INR 1.3; PT Patient Result 13.5 SECS
[2016-08-21 12:15] LABS: Calcium 8.2 MG/DL (8.5-10.1); Osmolality,Calculated 286.8 MOS/KG (273-304); Potassium 4.3 MMOL/L (3.5-5.1)
--- NOTE | 2016-08-21 15:54 | Discharge Summary ---
Hospital Course - Hospital Course Hospital Course: Patient is a 61-year-old -[place] female with multiple chronic comorbidities including hypertension, hyperlipidemia, CHF with reduced ejection fraction, atrial fibrillation, history of stroke with complete expressive aphasia, status post PEG tube placement was admitted originally from the detention for reportedly dislodged PEG tube and patient had reported fever of 102.7 Fahrenheit and was tachycardic. Clinical, laboratory testing, and imaging workup investigation were done and cardiology services was consulted. Patient was found to have sepsis due to Staphylococcus hominis MRSPedro because of the multiple active significant comorbidities including sepsis ,severe debility , aphasia and dysphagia, bedbound and nonverbal and noncommunicative status, atrial fibrillation, and severe anemia, and multiple history of comorbidities as stated above and encounter for hospice care discussion was initiated by the physician before I start to seeing the patient and after discussion with the family members and the case management decision was made for the patient to become hospice care status and the plan was to transfer patient to a detention with hospice care. Aerophysics Engineer from hospice care team came to the hospital and evaluated the patient. All questions of the family members were answered to their satisfaction. - Time spent with patient Time with patient DS: Greater than 30 minutes Diagnosis - Discharge Diagnosis (1) Sepsis due to Staphylococcus Status: Acute (2) Debility, unspecified Status: Chronic (3) Normocytic anemia Status: Acute (4) Atrial fibrillation Status: Chronic (5) Malfunction of percutaneous endoscopic gastrostomy (PEG) tube Status: Acute (6) Encounter for hospice care discussion Status: Acute (7) Elevated troponin Status: Acute (8) Dehydration with hypernatremia Status: Acute (9) History of CVA (cerebrovascular accident) Status: Chronic (10) Arthritis Status: Chronic Specialty Discharge - Follow Up or Referrals Discharge Plan - Discharge Data Disposition: Hospice - Medical Facility Condition at Discharge: Guarded (prognosis is poor) Discharge Diet: other (patient has a PEG tube) Activity: other (vision bedbound) - Discharge Medications Discontinued Insulin Lispro [HumaLOG] See Protocol SUBCUT ACHS ml Insulin Glargine [Lantus] 20 unit SUBCUT BEDTIME unit Pravastatin [Pravachol] 20 mg PEG BEDTIME tablet Albuterol Neb [Proventil Neb] 1.25 mg RESP TX RT Q6H PRN neb PRN Reason: Shortness Of Breath/Wheezing Multivitamin [Multivitamins] 1 each PEG DAILY Cholecalciferol [Vitamin D3] 1,000 unit PEG DAILY Esomeprazole Magnesium [Nexium] 40 mg PEG DAILY Acetaminophen 325 mg PEG Q8H PRN PRN Reason: Pain Magnesium Hydroxide Susp [Milk of Magnesia] 30 ml PEG DAILY PRN PRN Reason: Constipation Metoprolol Tartrate Tab [Lopressor Tab] 50 mg PEG BID Lactulose Liquid [Chronulac] 30 ml PEG Q8H PRN PRN Reason: Constipation Diltiazem Tab [Cardizem Tab] 60 mg PEG QID Digoxin Tab [Lanoxin Tab] 0.125 mg PEG DAILY@1300 Warfarin [Coumadin] 5 mg PEG DAILY@1800 Warfarin Sodium 3 mg PEG 1800 Aspirin Chew Tab 81 mg PEG DAILY levETIRAcetam LIQUID [Keppra Liquid] 250 mg PEG BID #120 ml - Follow Up or Referral - Forms/Instructions Instructions: Myocardial Infarction (GEN), Coronary Artery Disease (GEN), Heart Healthy Diet (GEN) Additional Discharge Instructions: Patient will be discharged to detention with hospice and comfort care measures and c s s representative from hospice care team visited the hospital and evaluated the patient and discussed with the counter caser who stated that the patient will be taken care of by hospice team service as of [facility]. Exam - Constitutional Vitals: Period Temp Pulse Resp BP Sys/Jasmine Pulse Ox Last 24 Hr 97 F-99.7 F 66-84 18-22 101-130/44-65 95-99 Exam: Gen: a&ox0, nonverbal noncommunicative bedbound w aphasia Neck: no JVD Heart: IRR, distant S1S2 lung: CTA anteriorly, no wheezing EXt: in position skin: warm, dry Neuro: Limited. Nonverbal, in position, aphasic, not able to move limbs Discharge Results Procedures and tests throughout hospitalization: Pending Orders 08/20/16 14:30 Occult Blood, Stool Stat 08/22/16 04:00 Basic Metabolic Panel IN AM Comp Blood Count Auto Diff IN AM 08/23/16 04:00 Basic Metabolic Panel IN AM Comp Blood Count Auto Diff IN AM Labs on day of discharge: Labs from last 24 hours 08/21/16 08/21/16 08/21/16 11:26 11:26 11:26 WBC 5.2 D RBC 3.31 L D Hgb 9.3 L D Hct 30.6 L MCV 92.4 MCH 28 MCHC 30.4 L RDW 17.2 Plt Count 114 L MPV 13.0 H Neut % (Auto) 61.3 Lymph % (Auto) 20.2 L [place] % (Auto) 13.1 H Eos % (Auto) 4.2 Baso % (Auto) 0.6 Neut # (Auto) 3.2 Lymph # (Auto) 1.1 L [place] # (Auto) 0.7 Eos # (Auto) 0.2 Baso # (Auto) 0.0 Immature Gran % 0.6 Nucleated RBC % 0.8 Immature Gran # 0.03 Nucleated RBCs # 0.04 INR 1.3 PT Patient/Control Mix 13.5 D Sodium 144 Potassium 4.3 Chloride 112 H Carbon Dioxide 22 Anion Gap 14.3 BUN 16 Creatinine 0.90 GFR Calculation 91 BUN/Creatinine Ratio 17.00 Glucose 90 Calculated Osmolality 286.8 Calcium 8.2 L Vancomycin Trough Blood Type Antibody Screen Crossmatch 08/20/16 08/20/16 23:24 06:48 WBC RBC Hgb Hct MCV MCH MCHC RDW Plt Count MPV Neut % (Auto) Lymph % (Auto) [place] % (Auto) Eos % (Auto) Baso % (Auto) Neut # (Auto) Lymph # (Auto) [place] # (Auto) Eos # (Auto) Baso # (Auto) Immature Gran % Nucleated RBC % Immature Gran # Nucleated RBCs # INR PT Patient/Control Mix Sodium Potassium Chloride Carbon Dioxide Anion Gap BUN Creatinine GFR Calculation BUN/Creatinine Ratio Glucose Calculated Osmolality Calcium Vancomycin Trough 23.7 H Blood Type B POSITIVE Antibody Screen Negative Crossmatch See Detail Preliminary micro results at discharge 08/17/16 16:33 Blood Culture - Preliminary Blood No growth at 3 days DS: Provider Date of admission: 08/17/16 15:10 Primary care physician: . No PCP Attending physician on admission: Jessy Colon MD Consults: 08/18/16 06:29 Consult to Cardiac Rehabilitation [CONS] Routine Reason for Cardiac Rehabilitation: Other 08/18/16 11:34 Consult to Case Mgmt/Social Srvs [CONS] Routine Reason for Case Mgmt/Social Srvs: Hospice Referral 08/18/16 14:06 Consult to Pharmacy [CONS] Routine Reason for Pharmacy Consult: Dose/Manage Vancomycin Discharging clinician: Bertram Gomez Expected date of discharge: 08/21/16 (to detention with hospice care)
[2016-08-21 18:07] VITALS: BP 120/59
--- NOTE | 2016-08-31 07:10 | Physician Query Form ---
CLICK EDIT DOCUMENT TO SELECT QUERY ANSWER --> OK --> SIGN Phylicia Goldman RN, CCDS Certified Clinical Construction Trench Digger W) [phone] (f) [phone] [email or web address] PROVIDERS: Make your selection(s) from the choices in EACH section by typing an "x" and enter comments in the comment section. Please use your independent medical judgment in providing your response. This request does not imply that any particular answer is desired or expected. CLINICAL INDICATORS: (Providers should not edit this section) The medical record indicates that the patient was admitted with a malfunction of a PEG, Normal WBC, no left shift, no Lactic Acid level, 2 temps of 101.0 on the 3rd, tachycardia on admission (AF chronic), respirations of 24-38 on admission, one blood culture for Staphylococcus hominis and the patient was on Piperacillin. {on the 3rd: "There is still no obvious source of infection"} Based on the above, could you clarify the appropriate diagnosis, if significant , that supports the above abnormalities and additional evaluation, monitoring, and/or treatment rendered: ( x) Sepsis was ruled out ( ) Sepsis due to ( ) Bacteremia only due to one positive blood culture ( ) Other, please specify: ( ) Clinically unable to determine COMMENTS: Use of terms such as suspected, likely, or probable (associated with a specific diagnosis that is being evaluated, monitored, or treated as if it exists) are acceptable and can be restated in the discharge summary if not ruled out. MTDD
== END 2016-08-21 17:20 | DRG 252 ==
LOC: EDUNIT# → N.ED 13:58 → N.EDINP 15:10 → N.CC 16:50 → N.5E 19:01
PROVIDERS: ADMIT Family Medicine; ATTEND Family Medicine

== ENCOUNTER 2016-09-21 08:06 | Inpatient (IN) ==
--- NOTE | 2016-09-21 08:53 | XRay Report ---
Portable chest Date: 09/21/2016 Clinical history: Shortness of breath, fever Comparison: 08/17/2016 Technique: Portable AP sitting chest Findings: The heart is minimally enlarged with calcification in the aortic knob. Progressive diffuse parenchymal findings which are more pronounced on the right. Stable mediastinum with osteopenia and degenerative changes. Impression: Progressive diffuse infiltration especially on the right with associated atelectasis especially at the lung bases. PROCEDURE INTERPRETED AT [facility] DEPARTMENT OF RADIOLOGY Final Report Signed by: Dr. Lucy Gilbert
[2016-09-21 09:03] LABS: Basophils # 0.1 10*3/uL (0.0-0.2); Basophils % 0.4 % (0.0-0.8); Hematocrit 37.4 VOL% (35.7-47.0); Hemoglobin 10.8 GM/DL (12.0-16.0); Immature Granulocytes % 0.5 %; Immature Granulocytes Absolute 0.07 #; Lymphocytes # 1.4 10*3/uL (1.4-4.0); Mean Corpuscular HGB Conc 28.9 GM/DL (32-36); Mean Corpuscular Hemoglobin 27 PG (27-34); Mean Corpuscular Volume 93.5 FL (87-102); Mean Platelet Volume 13.1 FL (9.6-12.0); Monocytes # 1.1 10*3/uL (0.11-0.8); Monocytes % 8.5 % (1.7-12.7); NRBC # 0.03 10*3/uL; Neutrophils # 10.8 10*3/uL (1.4-7.4); Neutrophils % 80.6 % (38.7-73.9); Platelet Count 165 T/CUMM (130-400); Red Cell Distribution Width 17.6 % (9.3-17.3); White Blood Count 13.5 T/CUMM (4-12)
[2016-09-21 09:17] LABS: Apearance,Urine CLOUDY (Clear); Bilirubin,Urine Negative (Negative); Blood, Urine Moderate mg/dL (Negative); Glucose,Urine (UA) Negative (Negative); Ketones,Urine Negative (Negative); Mucus,Urine Occasional /LPF (Occasional); Nitrite,Urine Negative (Negative); Protein,Urine 100 MG/DL; RBC,Urine 37 /HPF (0-4); Squamous Epithelial Cell,Urine Occasional /HPF (0-10); Urine Color Dark yellow (Yellow); Urine Specific Gravity 1.018 (1.001-1.035); WBC,Urine 16 /HPF (0-6)
[2016-09-21 09:30] LABS: Hypochromasia Slight; Platelet Estimate Normal
[2016-09-21] MEDS ORDERED: LEVOFLOXACIN INJ 500 MG in PREMIX 1 EACH IV STA (09:37)
--- NOTE | 2016-09-21 09:39 | Emergency Department Note ---
[place] Brittany, am scribing for, and in the presence of, Rosales Kennedy MD 08:34. Marcia Bridges Phillip K, MD, personally performed the services described in this documentation, ascribed by Carol Crenshaw in my presence, and it is both accurate and complete 939 . 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 She is currently in a F[facility]. Pt was sent to the GI Lab earlier today for a PEG TUBE placement. GI Lab staff noticed pt's heart rate was increased. She was then sent here for further evaluation. There is no fever. No other complaints/pain in the ED at this time. Pt has a PMhx of CHF, cardiomyopathy with history of EF 40 %, A-fib, IDDM, and arthritis and joint pain. Pt denies a surgical Hx. Pt denies a family medical Hx. 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) Consistency: constant Severity: moderate Allergies/Adverse Reactions: Allergies Allergy/AdvReac Type Severity Reaction Status Date / Time No Known Allergies Allergy Verified 08/17/16 14:19 Review of System - Review of System 12 point system: reviewed and no additional remarkable complaints except as stated - Review of System Cardiovascular: Present: other (Elevated Heart Rate) Medical,Surgical,& Family Hx - Medical History Cardio: History of: Cardiac Dysrhythmia (atrial fibrillation), CHF (EF 40% 1014) , Cardiovascular Problems (cardiomyopathy with history of EF of 40% April 2014 ) Endocrine: History of: Diabetes Mellitus (IDDM) Rheumatology: History of;: Rheumatological Problems (allegedly has arthritis and joint pain she is contracted) Musculoskeletal: History of: Musculoskeletal Problems (Joint effusion) - Social History Smoking Status: Unknown if ever smoked Exam Vital Signs: Vital Signs Temperature 98.8 F 09/21/16 08:11 Pulse Rate 131 H 09/21/16 08:11 Respiratory Rate 24 09/21/16 08:11 Blood Pressure 136/77 09/21/16 08:11 O2 Sat by Pulse Oximetry 99 09/21/16 08:07 - General General appearance: alert, in no apparent distress - Head Head exam: Present: atraumatic, normocephalic, normal inspection - Eye Eye exam: Present: normal appearance, PERRL, EOMI. Absent: nystagmus - ENT ENT exam: Present: mucous membranes dry - Neck Neck exam: Present: normal inspection, full ROM, trachea midline. Absent: tenderness, meningismus, lymphadenopathy, thyromegaly - Chest Chest inspection: Present: normal inspection, symmetric chest wall rise. Absent : tenderness, rash, abscess - Respiratory Respiratory exam: Present: normal lung sounds bilaterally. Absent: prolonged expiratory phase, rales, respiratory distress, rhonchi, stridor, wheezes - Cardiovascular Cardiovascular exam: Present: regular rate, normal rhythm, normal heart sounds. Absent: murmur, rubs, gallop, clicks - Abdominal Exam Abdominal exam: Present: soft, normal bowel sounds. Absent: distention, tenderness, guarding, rebound, rigidity - Extremities Exam Extremities exam: Present: normal inspection, full ROM, normal capillary refill. Absent: tenderness, pedal edema, joint swelling, calf tenderness - Back Exam Back exam: Present: normal inspection, full ROM. Absent: tenderness, muscle spasm, rashes - Neurological Exam Neurological exam: Present: alert, other (Pt appears to be at her normal baseline) - Psychiatric Psychiatric exam: Present: normal affect, normal mood. Absent: depressed, agitated, anxious, manic - Skin Skin exam: Present: warm, dry, intact, normal color. Absent: rash, cyanosis, diaphoresis, erythema, pallor, mottled Results - Labs CBC & BMP: 09/21/16 08:59 09/21/16 08:59 Lab Results: I have reviewed the patients labs Labs: Laboratory Tests Laboratory Tests 09/21/16 08:59 WBC 13.5 H RBC 4.00 Hgb 10.8 L Hct 37.4 MCV 93.5 MCH 27 MCHC 28.9 L RDW 17.6 H Plt Count 165 MPV 13.1 H Neut % (Auto) 80.6 H Lymph % (Auto) 10.0 L Dolores % (Auto) 8.5 Eos % (Auto) 0.0 Baso % (Auto) 0.4 Neut # (Auto) 10.8 H Lymph # (Auto) 1.4 Dolores # (Auto) 1.1 H Eos # (Auto) 0.0 Baso # (Auto) 0.1 Immature Gran % 0.5 Nucleated RBC % 0.2 Immature Gran # 0.07 Nucleated RBCs # 0.03 - EKG EKG results: interpreted by ERMD (sinus tachycardia) - Diagnostic Findings Procedure: Chest x-ray: report reviewed by me (Progressive diffuse infiltration especially on the rigth with assoicated atelectasis especailly at the lung bases.) Disposition Clinical Impression: Urinary tract infection, Right lower lobe pneumonia, Hypernatremia, Dehydration Case discussed with: patient's family, patient's physician Disposition: Still a Patient Additional Instructions: Admit to the hospitalist.
[2016-09-21 09:40] LABS: Albumin 2.5 G/DL (3.4-5.0); Bilirubin,Total 1.3 MG/DL (0.2-1.0); Osmolality,Calculated 340.5 MOS/KG (273-304); Potassium 5.2 MMOL/L (3.5-5.1); Total Protein 8.6 G/DL (6.4-8.3)
[2016-09-21 09:43] LABS: Troponin I Only 0.947 NG/ML (0.00-0.045)
[2016-09-21] MEDS ORDERED: LEVOFLOXACIN INJ 100 ML IV ONE (10:06)
[2016-09-21] MEDS ORDERED: ONDANSETRON 4 MG/2 ML VIAL IV PRN (10:13)
[2016-09-21] MEDS ORDERED: ALBUTEROL 2.5 MG/3 ML NEB RESP TX PRN (10:13)
[2016-09-21] MEDS ORDERED: SODIUM CHLORIDE 0.9% 2,000 ML IV ONE (10:16)
--- NOTE | 2016-09-21 11:25 | Hospitalist History & Physical ---
Addendum entered and electronically signed by Eliaazr Bass MD 09/21/16 16:23: Original Note: Assessment and Plan - Time spent with patient Time spent with patient: Less than 30 minutes (1) Acute renal failure Status: Acute Assessment and plan: Patient in acute renal failure most likely due to dehydration. Patient has normal creatinine and previous admission. Patient given IV fluids. Further recommendations per Dr. Bass Current Visit: Yes (2) Dehydration with hypernatremia Status: Acute Assessment and plan: Patient with acute hypernatremia,, now with elevated creatinine patient is most likely dehydrated. She is a detention patient with PEG tube placement is most likely not getting enough free water through her PEG. Will gently hydrate with normal saline. Recheck in her labs in the morning. Further recs per Dr. Bass. Current Visit: No (3) Elevated troponin Status: Acute Assessment and plan: This is most likely demand ischemia. Patient has a history of elevated chronically elevated troponins. We will continue to monitor EKG. Further recommendations per Dr. Bass. Current Visit: No (4) Sepsis Status: Acute Assessment and plan: Sepsis is most likely due to her right lower lobe pneumonia. She has been started on antibiotics and IV fluids. Further recommendations per Dr. Bass Current Visit: No (5) Pneumonia Status: Acute Assessment and plan: Chest x-ray reading a right lower lobe pneumonia. Patient has been started on antibiotics and breathing treatments. Further recommendations per Dr. Vaughan Current Visit: Yes History of Present Illness Chief complaint: Tachycardia History of present illness: Ms. Meghana Marquez is a 61-year-old -[place]ian female with history of CVA with expressive aphasia, detention resident, Unruly givens on anticoagulation, congestive heart failure, diabetes sent to the ED from GI lab. Patient was in the GI lab with Dr. Lantigua getting a new PEG tube when postop they discovered she had a heart rate in the 130s. She was sent to the ED for further evaluation where they found an acute renal failure with acute hypernatremia, right lower lobe pneumonia and sepsis. Most of her history has been taken from her sister that is in the room and her ED chart. Patient had a recent admission in early August with sepsis as well. Patient is afebrile at this time with a heart rate of 131 and stable blood pressure. Her sodium is 161, potassium 5.2, creatinine elevated at 2.1, troponin 0.947, UA with trace leukocytes, chest x-ray showing a right lower lobe pneumonia. Dr. Bass has been asked to admit. Home Medications Medication Instructions Recorded Confirmed Type Acetaminophen Tab [Tylenol Tab] 325 mg PEG Q8H PRN 09/21/16 09/21/16 History Albuterol Neb [Proventil Neb] 1.25 mg RESP TX Q8H PRN 09/21/16 09/21/16 History Aspirin EC Tab 81 mg PEG DAILY 09/21/16 09/21/16 History Cholecalciferol [Vitamin D3] 1,000 unit PEG DAILY 09/21/16 09/21/16 History Digoxin Tab [Lanoxin Tab] 0.125 mg PEG DAILY@1300 09/21/16 09/21/16 History Diltiazem Tab [Cardizem Tab] 60 mg PEG QID 09/21/16 09/21/16 History Esomeprazole Magnesium [Nexium] 40 mg PEG DAILY 09/21/16 09/21/16 History Glucagon 1 mg IM PRN PRN 09/21/16 09/21/16 History Insulin Glargine [Lantus] 20 unit SUBCUT BEDTIME 09/21/16 09/21/16 History Insulin Lispro [HumaLOG] 0 - 12 unit SUBCUT ACHS 09/21/16 09/21/16 History Lactulose Liquid [Chronulac] 20 gm PEG Q8H PRN 09/21/16 09/21/16 History Magnesium Hydroxide Susp [Milk of 30 ml PEG DAILY PRN 09/21/16 09/21/16 History Magnesia] Metoprolol Tartrate Tab [Lopressor 50 mg PEG BID 09/21/16 09/21/16 History Tab] Multivit &Minerals/Ferrous Fum 9 mg PEG DAILY 09/21/16 09/21/16 History [Multivitamin Liquid] Pravastatin Sodium 20 mg PEG BEDTIME 09/21/16 09/21/16 History Tramadol HCl [Tramadol Tab] 50 mg PEG Q6H PRN 09/21/16 09/21/16 History Warfarin [Coumadin] 8 mg PEG DAILY@1800 09/21/16 09/21/16 History levETIRAcetam [Levetiracetam] 500 mg PEG BID 09/21/16 09/21/16 History Allergies Allergy/AdvReac Type Severity Reaction Status Date / Time No Known Allergies Allergy Verified 08/17/16 14:19 Medical,Surgical,& Family Hx - Medical History Cardio: History of: Cardiac Dysrhythmia (atrial fibrillation), CHF (EF 40% 1014) , Cardiovascular Problems (cardiomyopathy with history of EF of 40% April 2014 ) Endocrine: History of: Diabetes Mellitus (IDDM) Rheumatology: History of;: Rheumatological Problems (allegedly has arthritis and joint pain she is contracted) Musculoskeletal: History of: Musculoskeletal Problems (Joint effusion) - Social History Smoking Status: Unknown if ever smoked ROS unobtainable: due to mental status Exam - Constitutional Vitals: Period Temp Pulse Resp BP Sys/Jasmine Pulse Ox Last 24 Hr 98.8 F-98.8 F 126-131 24-28 130-136/72-77 99 Exam: 61-year-old -Colombian female, no acute distress, expressive aphasia Sister is present Chest with mild crackles on the right CV irregularly irregular with tachycardia Abdomen soft tender to palpation throughout, new PEG intact Extremities with no edema bilaterally, bilateral contractures, necrotic wounds on both feet, no palpable pulses Results - Labs CBC & BMP: 09/21/16 08:59 09/21/16 08:59 Lab Results: I have reviewed the past 24 hour labs - Diagnostic Findings Procedure: CT - chest: report reviewed by me (Right lower lobe pneumonia)
[2016-09-21] MEDS ORDERED: traMADol 50 MG TABLET PEG PRN (11:58)
[2016-09-21] MEDS ORDERED: GLUCAGON 1 MG VIAL IM PRN (11:58)
[2016-09-21] MEDS ORDERED: LACTULOSE 20 GM/30 ML UDCUP PEG PRN (11:58)
[2016-09-21] MEDS ORDERED: ALBUTEROL 1.25 MG/3 ML NEB RESP TX PRN (11:58)
[2016-09-21] MEDS ORDERED: MAGNESIUM HYDROXIDE SUSP 30 ML UDCUP PEG PRN (11:58)
[2016-09-21] MEDS ORDERED: DIGOXIN 0.125 MG TABLET PEG SCH (13:00)
[2016-09-21 13:03] LABS: INR 1.6; PT Patient Result 17.2 SECS
--- NOTE | 2016-09-21 13:03 | EKG Report ---
Stationary ECG Study [facility] ER Test Date: 09/21/2016 8:37:02 AM Pat Name: ANNABEL PALMER Department: Room: 237 Gender: F Candy Dipper: ELENA : 1955 Requested by: Rosales Fuchs Order Number: [id number] Reading MD: JOE AKBAR Intervals [place] Rate: 134 P: 80 [place]: 135 QRS: -57 QRSD: 86 T: 71 QT: 297 QTc: 376 Interpretive Statements SINUS TACHYCARDIA MARKED LEFT AXIS DEVIATION LOW QRS VOLTAGE IN PRECORDIAL LEADS POSSIBLE ANTERIOR MYOCARDIAL INFARCTION, OF INDETERMINATE AGE Electronically Signed On 09-21-16 17:53:07 MERCHANDISE PICKUP/RECEIVING ASSOCIATE by JOE AKBAR [email or web address]
[2016-09-21] MEDS: DEXTROSE 5% NACL 0.45% 1,000 ML IV SCH ×2 (13:30→18:29)
[2016-09-21] MEDS: METOPROLOL TARTRATE 50 MG TABLET PEG SCH ×2 (13:30→20:35)
[2016-09-21] MEDS: DILTIAZEM 60 MG TABLET PO SCH ×3 (13:31→20:35)
[2016-09-21] MEDS: levETIRAcetam LIQUID 100 MG/ML 30 ML/BOTTLE PEG SCH ×2 (13:58→20:34)
[2016-09-21] MEDS: MULTIVITAMIN LIQUID (CENTRUM) 60 ML BOTTLE PEG SCH (13:58)
[2016-09-21] MEDS: ACETAMINOPHEN 325 MG TABLET PEG PRN (13:59)
[2016-09-21] MEDS: ENOXAPARIN 30 MG/0.3 ML SYRINGE SUBCUT SCH (13:59)
[2016-09-21] MEDS: CHOLECALCIFEROL 1,000 UNIT TABLET PEG SCH (13:59)
[2016-09-21] MEDS: ASPIRIN EC 81 MG TABLET PO SCH (13:59)
[2016-09-21] MEDS: DESITIN 4OZ/NYSTATIN 15 GRAM MIXTURE PASTE TOP SCH ×2 (13:59→20:35)
[2016-09-21] MEDS: ALBUTEROL/IPRATROPIUM 3 ML NEB RESP TX SCH ×2 (14:33→19:28)
[2016-09-21 16:12] LABS: Calcium 8.5 MG/DL (8.5-10.1); Osmolality,Calculated 338.6 MOS/KG (273-304)
[2016-09-21] MEDS ORDERED: WARFARIN 4 MG TABLET PEG SCH (18:00)
--- NOTE | 2016-09-21 19:47 | Gastrointestinal Consult Note ---
Assessment and Plan (1) Dysphagia as late effect of cerebrovascular accident (CVA) Status: Acute Assessment and plan: This patient had a PEG tube dislodgment last month and possibly as a result of not using an abdominal binder once again found the PEG tube dislodged and was sent over to the emergency room to get a England catheter placement. This fully could have been used to give hydration, medication and nutritional supplements however it is unclear whether was used in the interim before the patient was able to come for more permanent PEG tube replacement today. The replacement was performed this morning and this can be used for medication hydration and nutritional needs now. This is her only active GI issue. I noticed that the hospitalist team has started Coumadin aspirin and Lovenox all at once, this might lead to bleeding. Thank you for the consultation please let me know if I can be of further help with other issues may be concerned about. Current Visit: Yes History of Present Illness Chief complaint: PEG tube dislodgment requiring replacement this morning. History of present illness: Ms. Marquez is a 61 year old female who is a resident of [facility]) in whom I placed a PEG tube endoscopically on 08/03/14 who was felt at that time to be an aspiration risk post stroke with ongoing medication hydration and nutritional needs post stroke. Patient had a low platelet count at the time requiring transfusion of platelets as well as anemia thought secondary to methotrexate exposure and treatment of her rheumatoid arthritis. She was lost to follow-up until her PEG tube became displaced on 08/16/16 and this was replaced with a inflatable PEG tube in the GI suite. We were contacted recently by her long term through my nurse concerning the PEG tube that had come loose again. It is my understanding that a England was placed as an interim stopgap which should have allowed her feedings and she was brought back into the GI suite this morning for replacement of the PEG tube. It was there on the monitor the patient was discovered to be taking at 140 bpm with EKG changes that looked like a myocardial infarction, she was sent down to the emergency room for evaluation and felt to require admission. Her PEG tube has been replaced and it is functional. I suspect that when the previous PEG tube came out and was replaced with a England catheter in the emergency room that her feeding, medications, and hydration were not continued in the interim before this could very be replaced the interim England could be replaced with a more "permanent" inflatable PEG tube. This likely led to the present acute renal failure, hypernatremia and dehydration. The right lower lobe pneumonia may be secondary to aspiration. Home Medications Medication Instructions Recorded Confirmed Type Acetaminophen Tab [Tylenol Tab] 325 mg PEG Q8H PRN 09/21/16 09/21/16 History Albuterol Neb [Proventil Neb] 1.25 mg RESP TX Q8H PRN 09/21/16 09/21/16 History Aspirin EC Tab 81 mg PEG DAILY 09/21/16 09/21/16 History Cholecalciferol [Vitamin D3] 1,000 unit PEG DAILY 09/21/16 09/21/16 History Digoxin Tab [Lanoxin Tab] 0.125 mg PEG DAILY@1300 09/21/16 09/21/16 History Diltiazem Tab [Cardizem Tab] 60 mg PEG QID 09/21/16 09/21/16 History Esomeprazole Magnesium [Nexium] 40 mg PEG DAILY 09/21/16 09/21/16 History Glucagon 1 mg IM PRN PRN 09/21/16 09/21/16 History Insulin Glargine [Lantus] 20 unit SUBCUT BEDTIME 09/21/16 09/21/16 History Insulin Lispro [HumaLOG] 0 - 12 unit SUBCUT ACHS 09/21/16 09/21/16 History Lactulose Liquid [Chronulac] 20 gm PEG Q8H PRN 09/21/16 09/21/16 History Magnesium Hydroxide Susp [Milk of 30 ml PEG DAILY PRN 09/21/16 09/21/16 History Magnesia] Metoprolol Tartrate Tab [Lopressor 50 mg PEG BID 09/21/16 09/21/16 History Tab] Multivit &Minerals/Ferrous Fum 9 mg PEG DAILY 09/21/16 09/21/16 History [Multivitamin Liquid] Pravastatin Sodium 20 mg PEG BEDTIME 09/21/16 09/21/16 History Tramadol HCl [Tramadol Tab] 50 mg PEG Q6H PRN 09/21/16 09/21/16 History Warfarin [Coumadin] 8 mg PEG DAILY@1800 09/21/16 09/21/16 History levETIRAcetam [Levetiracetam] 500 mg PEG BID 09/21/16 09/21/16 History Allergies Allergy/AdvReac Type Severity Reaction Status Date / Time No Known Allergies Allergy Verified 08/17/16 14:19 Medical,Surgical,& Family Hx - Medical History Cardio: History of: Cardiac Dysrhythmia (atrial fibrillation), CHF (EF 40% 1014) , Cardiovascular Problems (cardiomyopathy with history of EF of 40% April 2014 ) Neurology: History of: Cerebrovascular Accident, Seizures Endocrine: History of: Diabetes Mellitus (IDDM) Rheumatology: History of;: Rheumatological Problems (allegedly has arthritis and joint pain she is contracted) Respiratory: History of: Pneumonia Genitourinary: History of: Recurring Urinary Tract Infections, Problems Musculoskeletal: History of: Musculoskeletal Problems (Joint effusion) - Surgical History Abdominal Surgeries: Surgical HX of: Abdominal Surgery (PEG PLACED 09/21/16) - Social History Smoking Status: Unknown if ever smoked Frequency of Alcohol Use: None Type of Drug Use: None ROS unobtainable: due to dementia, due to encephalopathy Exam - Constitutional Vitals: Period Temp Pulse Resp BP Sys/Jasmine Pulse Ox Last 24 Hr 99.5 F 102-127 17-24 109-118/58-66 93-99 General appearance: over weight Exam: Constitutional: Well-developed, well-nourished, contracted black female who appears confused but in no acute distress Head and face: Head: Normocephalic atraumatic Eyes: Conjunctiva without injection, no gross scleral icterus, pupils equal and round bilaterally Ears: Intact to conversation in both ears Nose: External appearance is normal, nares patent Mouth: Oral mucous membranes dry and with mild erythema patient is edentulous Neck: Normal appearance, no masses or tenderness, trachea midline Thyroid: Gland midline and appropriate size for age Respiratory: Normal respiratory effort, clear to auscultation without wheezes, rhonchi or rales Cardiovascular: Regular rate and rhythm, normal S1, S2, the exam is without rubs, murmurs or gallops. Gastrointestinal: Nontender to palpation, normal active bowel sounds, tone normal without rigidity or guarding, no masses present, no hepatomegaly, no spleen tip felt. No rectal exam obtained. Lymphatic: Neck without adenopathy, axilla without lymphadenopathy present Musculoskeletal: Patient has flexion contractures of her lower extremities , she does not follow commands, she appears to be awake but not responsive. Skin and subcutaneous tissue: No rashes or ulcerations noted, normal skin turgor, digits and nails without clubbing/cyanosis/deformities. Neurologic: Patient appears to be in flexion contracture from her previous stroke with somewhat locked in state/expressive aphasia. Psychiatric: Unable to assess Results - Labs CBC & BMP: 09/21/16 08:59 09/21/16 15:27
[2016-09-21] MEDS: PRAVASTATIN 20 MG TABLET PEG SCH (20:34)
[2016-09-21] MEDS: INSULIN GLARGINE 100 UNIT/ML SUBCUT SCH (20:43)
[2016-09-22] MEDS: ALBUTEROL/IPRATROPIUM 3 ML NEB RESP TX SCH ×4 (01:08→20:22)
[2016-09-22] MEDS: DEXTROSE 5% NACL 0.45% 1,000 ML IV SCH ×2 (02:02→10:33)
[2016-09-22 06:15] LABS: INR 1.9
[2016-09-22 06:20] LABS: PT Patient Result 20.7 SECS
[2016-09-22 06:34] LABS: Calcium 7.9 MG/DL (8.5-10.1); Osmolality,Calculated 340.5 MOS/KG (273-304); Potassium 4.4 MMOL/L (3.5-5.1)
[2016-09-22 06:38] LABS: Basophils % 0.1 % (0.0-0.8); Eosinophils % 0.1 % (0.00-10.9); Hemoglobin 8.6 GM/DL (12.0-16.0); Immature Granulocytes % 0.5 %; Immature Granulocytes Absolute 0.08 #; Lymphocytes # 2.3 10*3/uL (1.4-4.0); Lymphocytes % 15.2 % (21.3-54.2); Mean Corpuscular Hemoglobin 27 PG (27-34); Mean Corpuscular Volume 97.2 FL (87-102); Mean Platelet Volume 13.6 FL (9.6-12.0); Monocytes % 6.3 % (1.7-12.7); NRBC # 0.04 10*3/uL; Neutrophils # 11.8 10*3/uL (1.4-7.4); Neutrophils % 77.8 % (38.7-73.9); Platelet Count 109 T/CUMM (130-400); Red Blood Count 3.16 MC/CUMM (3.8-5.5); White Blood Count 15.2 T/CUMM (4-12)
[2016-09-22 06:41] LABS: Hematocrit 30.7 VOL% (35.7-47.0)
[2016-09-22 06:56] LABS: Elliptocytes Few; Hypochromasia 1+; Platelet Estimate Normal
[2016-09-22] MEDS ORDERED: CEFEPIME 1,000 MG in SODIUM CHLORIDE 0.9% 100 ML IV SCH (09:00)
--- NOTE | 2016-09-22 09:40 | Hospitalist Progress Note ---
Assessment and Plan (1) HCAP (healthcare-associated pneumonia) Status: Acute Assessment and plan: Started on Levaquin at admit. will broaden abx coverage for HCAP. Add cefepime and vancomycin to cover gram neg and MRSA pneumonia until this can be excluded. Current Visit: Yes (2) Functional quadriplegia Status: Chronic Current Visit: Yes (3) Sepsis Status: Acute Assessment and plan: suspect HCAP as source. see above Current Visit: No Qualifiers: Sepsis type: sepsis due to unspecified organism Qualified Code(s): A41.9 - Sepsis, unspecified organism (4) Malfunction of gastrostomy tube Status: Acute Assessment and plan: PEG replaced by GI yesterday Current Visit: No (5) Hypernatremia Status: Acute Assessment and plan: Continue with IVF hydration. Increasing free water via PEG Current Visit: Yes (6) Acute renal failure Status: Acute Assessment and plan: improving with hydration Current Visit: Yes Hospitalist: Subjective Interval history: pt is nonverbal Exam - Constitutional Vitals: Period Temp Pulse Resp BP Sys/Jasmine Pulse Ox Last 24 Hr 99.2 F-100.4 F 85-127 17-24 84-118/44-66 92-99 General appearance: no acute distress (elderly BF, nonverbal, appears chronically ill) - Head Head exam: Present: normocephalic - Eye Eye exam: Present: EOMI Pupils: Present: JUDE - ENT ENT exam: Present: normal external ear exam, normal oropharynx - Neck Neck exam: Present: normal inspection - Respiratory Respiratory exam: Present: rhonchi. Absent: accessory muscle use, chest wall tenderness - Cardiovascular Cardiovascular exam: Present: regular rate and rhythm. Absent: gallop, rubs - GI/Abdominal GI/Abdominal exam: Present: normal bowel sounds. Absent: tenderness (PEG site CDI) - Extremities Exam Extremities exam: Present: other (muscle wasting a/w functional quadriplegia ) - Neurological Exam Neurological exam: Present: other (nonverbal, grimaces at attempt to examine, functional quad) - Psychiatric Psychiatric exam: Present: other (UTO) - Skin Skin exam: Present: warm, dry Results - Labs CBC & BMP: 09/22/16 05:26 09/22/16 05:26 - Diagnostic Findings Procedure: Chest x-ray: image reviewed by me, report reviewed by me (right basilar infiltrate)
--- NOTE | 2016-09-22 09:48 | Physician Query Form ---
CLICK EDIT DOCUMENT TO SELECT QUERY ANSWER --> OK --> SIGN Marcela Zarate RN Clinical Plant Machinist W) [phone] (f) [phone] [email or web address] PROVIDERS: Make your selection(s) from the choices in EACH section by typing an "x" and enter comments in the comment section. Please use your independent medical judgment in providing your response. This request does not imply that any particular answer is desired or expected. CLINICAL INDICATORS: (Providers should not edit this section) Based on documentation from wound care nurse initial assessment "Right foot pressure ulcer stage 3" Based on the above, could you clarify the appropriate diagnosis, if significant , that supports the above abnormalities and additional evaluation, monitoring, and/or treatment rendered: (x ) Agree with wound care nurse initial assessment ( ) Do NOT agree with wound care nurse initial assessment ( ) Other, please specify: ( ) Clinically unable to determine COMMENTS: Use of terms such as suspected, likely, or probable (associated with a specific diagnosis that is being evaluated, monitored, or treated as if it exists) are acceptable and can be restated in the discharge summary if not ruled out. [facility]
--- NOTE | 2016-09-22 09:50 | Physician Query Form ---
CLICK EDIT DOCUMENT TO SELECT QUERY ANSWER --> OK --> SIGN Marcela Zarate RN Clinical Ramp Jockey W) [phone] (f) [phone] [email or web address]: Make your selection(s) from the choices in EACH section by typing an "x" and enter comments in the comment section. Please use your independent medical judgment in providing your response. This request does not imply that any particular answer is desired or expected. CLINICAL INDICATORS: (Providers should not edit this section) Based on documentation from wound care nurse initial assessment "Left foot pressure ulcer stage 3" Based on the above, could you clarify the appropriate diagnosis, if significant , that supports the above abnormalities and additional evaluation, monitoring, and/or treatment rendered: (x ) Agree with wound care nurse initial assessment ( ) Do NOT agree with wound care nurse initial assessment ( ) Other, please specify: ( ) Clinically unable to determine COMMENTS: Use of terms such as suspected, likely, or probable (associated with a specific diagnosis that is being evaluated, monitored, or treated as if it exists) are acceptable and can be restated in the discharge summary if not ruled out. [facility]
--- NOTE | 2016-09-22 09:52 | Physician Query Form ---
CLICK EDIT DOCUMENT TO SELECT QUERY ANSWER --> OK --> SIGN Marcela Zarate RN Clinical Distribution Supervisor W) [phone] (f) [phone] [email or web address]: Make your selection(s) from the choices in EACH section by typing an "x" and enter comments in the comment section. Please use your independent medical judgment in providing your response. This request does not imply that any particular answer is desired or expected. CLINICAL INDICATORS: (Providers should not edit this section) Based on documentation from wound care nurse initial assessment "Sacrum pressure ulcer stage 2" Based on the above, could you clarify the appropriate diagnosis, if significant , that supports the above abnormalities and additional evaluation, monitoring, and/or treatment rendered: ( x) Agree with wound care nurse initial assessment ( ) Do NOT agree with wound care nurse initial assessment ( ) Other, please specify: ( ) Clinically unable to determine COMMENTS: Use of terms such as suspected, likely, or probable (associated with a specific diagnosis that is being evaluated, monitored, or treated as if it exists) are acceptable and can be restated in the discharge summary if not ruled out. [facility]
[2016-09-22] MEDS ORDERED: VANCOMYCIN INJ 1,500 MG in SODIUM CHLORIDE 0.9% 500 ML IV ONE (10:00)
[2016-09-22] MEDS: MULTIVITAMIN LIQUID (CENTRUM) 60 ML BOTTLE PEG SCH (10:29)
[2016-09-22] MEDS: CHOLECALCIFEROL 1,000 UNIT TABLET PEG SCH (10:33)
[2016-09-22] MEDS: METOPROLOL TARTRATE 50 MG TABLET PEG SCH ×3 (10:34→21:27)
[2016-09-22] MEDS: ASPIRIN EC 81 MG TABLET PO SCH (10:34)
[2016-09-22] MEDS: levETIRAcetam LIQUID 100 MG/ML 30 ML/BOTTLE PEG SCH ×2 (10:35→20:43)
[2016-09-22] MEDS: DESITIN 4OZ/NYSTATIN 15 GRAM MIXTURE PASTE TOP SCH ×2 (10:36→20:56)
[2016-09-22] MEDS: DILTIAZEM 60 MG TABLET PO SCH ×4 (10:43→21:03)
[2016-09-22] MEDS: ENOXAPARIN 30 MG/0.3 ML SYRINGE SUBCUT SCH (11:05)
[2016-09-22] MEDS ORDERED: DEXTROSE 50% 25 GM/50 ML VIAL IV PRN (11:05)
[2016-09-22] MEDS: LEVOFLOXACIN INJ 250 MG in PREMIX 1 EACH IV SCH (12:05)
[2016-09-22] MEDS: PRAVASTATIN 20 MG TABLET PEG SCH (20:43)
[2016-09-22] MEDS: CEFEPIME 1,000 MG in SODIUM CHLORIDE 0.9% 100 ML IV SCH (20:44)
[2016-09-22] MEDS: INSULIN GLARGINE 100 UNIT/ML SUBCUT SCH (20:56)
[2016-09-23] MEDS: ALBUTEROL/IPRATROPIUM 3 ML NEB RESP TX SCH ×4 (00:40→19:30)
[2016-09-23 05:43] LABS: Calcium 7.4 MG/DL (8.5-10.1); Osmolality,Calculated 317.4 MOS/KG (273-304); Potassium 4.1 MMOL/L (3.5-5.1)
--- NOTE | 2016-09-23 09:59 | Hospitalist Progress Note ---
Assessment and Plan (1) HCAP (healthcare-associated pneumonia) Status: Acute Assessment and plan: Started on Levaquin at admit. will broaden abx coverage for HCAP. Add cefepime and vancomycin to cover gram neg and MRSA pneumonia until this can be excluded. Cx negative thus far. consider beginning de-escalation of abx in another 24-48 hrs depending on clinical response Current Visit: Yes (2) Functional quadriplegia Status: Chronic Current Visit: Yes (3) Sepsis Status: Acute Assessment and plan: suspect HCAP as source. see above Current Visit: No Qualifiers: Sepsis type: sepsis due to unspecified organism Qualified Code(s): A41.9 - Sepsis, unspecified organism (4) Malfunction of gastrostomy tube Status: Acute Assessment and plan: PEG replaced by GI 09/21 Current Visit: No (5) Hypernatremia Status: Acute Assessment and plan: Improving with hydration and free water replacement Current Visit: Yes (6) Acute renal failure Status: Acute Assessment and plan: improving with hydration Current Visit: Yes Hospitalist: Subjective Interval history: Pt is nonverbal. Rn expresses concern for borderline hypotension while on scheduled Lopressor and Cardizem. Rate control good. Exam - Constitutional Vitals: Period Temp Pulse Resp BP Sys/Jasmine Pulse Ox Last 24 Hr 98.5 F-100.6 F 76-101 15-22 83-115/45-57 92-100 General appearance: other (nonverbal, functional quad) - Head Head exam: Present: normocephalic - Eye Eye exam: Absent: conjunctival injection, periorbital swelling, scleral icterus Pupils: Present: JUDE - ENT ENT exam: Present: normal exam - Neck Neck exam: Present: normal inspection - Respiratory Respiratory exam: Present: rhonchi. Absent: accessory muscle use, decreased breath sounds - Cardiovascular Cardiovascular exam: Present: irregular rhythm. Absent: tachycardia - GI/Abdominal GI/Abdominal exam: Present: normal bowel sounds. Absent: distended, tenderness (PEG site CDI) - Extremities Exam Extremities exam: Present: other (wasting a/w functional quadriplegia ) - Neurological Exam Neurological exam: Present: other (nonverbal, groans on exam) - Skin Skin exam: Present: warm, dry Results - Labs CBC & BMP: 09/22/16 05:26 09/23/16 05:01
[2016-09-23] MEDS ORDERED: VANCOMYCIN INJ 1,000 MG in SODIUM CHLORIDE 0.9% 250 ML IV SCH (10:00)
[2016-09-23] MEDS: DILTIAZEM 60 MG TABLET PO SCH (10:19)
[2016-09-23] MEDS: DEXTROSE 5% NACL 0.45% 1,000 ML IV SCH (10:20)
[2016-09-23] MEDS: SODIUM CHLORIDE 0.45% 1,000 ML IV SCH (10:25)
[2016-09-23] MEDS: LEVOFLOXACIN INJ 250 MG in PREMIX 1 EACH IV SCH (10:26)
[2016-09-23] MEDS: METOPROLOL TARTRATE 50 MG TABLET PEG SCH ×2 (10:30→21:25)
[2016-09-23] MEDS: CHOLECALCIFEROL 1,000 UNIT TABLET PEG SCH (10:30)
[2016-09-23] MEDS: DESITIN 4OZ/NYSTATIN 15 GRAM MIXTURE PASTE TOP SCH ×2 (10:30→22:40)
[2016-09-23] MEDS: ASPIRIN EC 81 MG TABLET PO SCH (10:30)
[2016-09-23] MEDS: MULTIVITAMIN LIQUID (CENTRUM) 60 ML BOTTLE PEG SCH (10:32)
[2016-09-23] MEDS: levETIRAcetam LIQUID 100 MG/ML 30 ML/BOTTLE PEG SCH ×2 (10:32→21:26)
[2016-09-23] MEDS: ENOXAPARIN 40 MG/0.4 ML SYRINGE SUBCUT SCH (10:51)
[2016-09-23] MEDS: CEFEPIME 1,000 MG in SODIUM CHLORIDE 0.9% 100 ML IV SCH ×2 (11:33→21:24)
[2016-09-23] MEDS: VANCOMYCIN INJ 1,000 MG in SODIUM CHLORIDE 0.9% 250 ML IV SCH ×2 (13:03→22:40)
[2016-09-23] MEDS: DILTIAZEM 30 MG TABLET PO SCH ×2 (15:09→22:45)
[2016-09-23] MEDS: PRAVASTATIN 20 MG TABLET PEG SCH (21:26)
[2016-09-23] MEDS: INSULIN GLARGINE 100 UNIT/ML SUBCUT SCH (22:42)
[2016-09-24] MEDS: ALBUTEROL/IPRATROPIUM 3 ML NEB RESP TX SCH ×4 (00:57→19:23)
[2016-09-24] MEDS: ACETAMINOPHEN 325 MG TABLET PEG PRN ×2 (01:31→21:56)
[2016-09-24] MEDS: SODIUM CHLORIDE 0.45% 1,000 ML IV SCH ×2 (01:39→22:02)
[2016-09-24 06:37] LABS: Albumin 1.8 G/DL (3.4-5.0); Calcium 7.7 MG/DL (8.5-10.1); Osmolality,Calculated 299.3 MOS/KG (273-304); Phosphorous 2.3 MG/DL (2.5-4.9); Potassium 4.2 MMOL/L (3.5-5.1)
[2016-09-24] MEDS ORDERED: SODIUM CHLORIDE 0.9% 500 ML IV ONE (07:57)
[2016-09-24] MEDS: levETIRAcetam LIQUID 100 MG/ML 30 ML/BOTTLE PEG SCH ×2 (08:45→21:57)
[2016-09-24] MEDS: MULTIVITAMIN LIQUID (CENTRUM) 60 ML BOTTLE PEG SCH (08:45)
[2016-09-24] MEDS: METOPROLOL TARTRATE 50 MG TABLET PEG SCH ×2 (08:47→21:56)
[2016-09-24] MEDS: CHOLECALCIFEROL 1,000 UNIT TABLET PEG SCH (08:48)
[2016-09-24] MEDS: ASPIRIN EC 81 MG TABLET PO SCH (08:48)
[2016-09-24] MEDS: CEFEPIME 1,000 MG in SODIUM CHLORIDE 0.9% 100 ML IV SCH ×2 (10:07→21:38)
[2016-09-24] MEDS: DESITIN 4OZ/NYSTATIN 15 GRAM MIXTURE PASTE TOP SCH ×2 (10:08→21:59)
[2016-09-24] MEDS: ENOXAPARIN 40 MG/0.4 ML SYRINGE SUBCUT SCH (10:14)
[2016-09-24] MEDS: VANCOMYCIN INJ 1,000 MG in SODIUM CHLORIDE 0.9% 250 ML IV SCH ×2 (11:05→23:58)
--- NOTE | 2016-09-24 12:15 | Hospitalist Progress Note ---
Assessment and Plan (1) Sepsis Status: Acute Assessment and plan: suspect HCAP as source. I dont believe modest hypotension is related Current Visit: No Qualifiers: Sepsis type: sepsis due to unspecified organism Qualified Code(s): A41.9 - Sepsis, unspecified organism (2) HCAP (healthcare-associated pneumonia) Status: Acute Assessment and plan: Started on Levaquin at admit. will broaden abx coverage for HCAP. Add cefepime and vancomycin to cover gram neg and MRSA pneumonia until this can be excluded. Cx negative thus far. Current Visit: Yes (3) Functional quadriplegia Status: Chronic Current Visit: Yes (4) Malfunction of gastrostomy tube Status: Acute Assessment and plan: PEG replaced by GI 09/21 Current Visit: No (5) Hypernatremia Status: Acute Assessment and plan: Improving with hydration and free water replacement Current Visit: Yes (6) Acute renal failure Status: Resolved Assessment and plan: Resolved with tx of sepsis and hydration Current Visit: Yes (7) Hypotension Status: Acute Assessment and plan: Med related? Dc cardizem today. IVF bolus. Monitor response. Current Visit: Yes (8) Atrial fibrillation Status: Chronic Assessment and plan: Chronic per hx. Dig held at admit. Now dc cardizem for hypotension. Monitor for rate control. Current Visit: Yes Hospitalist: Subjective Interval history: Nonverbal. Pt has persistent, modest hypotension despite decreased dose of cardizem. IVF bolus now. DC cardizem Exam - Constitutional Vitals: Period Temp Pulse Resp BP Sys/Jasmine Pulse Ox Last 24 Hr 98.2 F-101.5 F 66-88 18-24 85-104/46-55 92-100 General appearance: no acute distress - Head Head exam: Present: normal inspection - Eye Eye exam: Present: EOMI Pupils: Present: JUDE - ENT ENT exam: Present: normal exam - Neck Neck exam: Present: normal inspection - Respiratory Respiratory exam: Present: clear to auscultation bilaterally - Cardiovascular Cardiovascular exam: Present: irregular rhythm - GI/Abdominal GI/Abdominal exam: Present: normal bowel sounds, other (PEG site CDI) - Extremities Exam Extremities exam: Present: other (musc wasting) - Neurological Exam Neurological exam: Present: other (nonverbal, functional quad) - Skin Skin exam: Present: warm, dry Results - Labs CBC & BMP: 09/22/16 05:26 09/24/16 05:03
[2016-09-24] MEDS: LEVOFLOXACIN INJ 250 MG in PREMIX 1 EACH IV SCH (12:42)
[2016-09-24] MEDS: PRAVASTATIN 20 MG TABLET PEG SCH (21:57)
[2016-09-25] MEDS: ALBUTEROL/IPRATROPIUM 3 ML NEB RESP TX SCH ×4 (00:55→22:30)
[2016-09-25 08:33] LABS: Calcium 8.4 MG/DL (8.5-10.1); Osmolality,Calculated 293.6 MOS/KG (273-304); Potassium 4.4 MMOL/L (3.5-5.1)
[2016-09-25 08:42] LABS: Magnesium 2.5 MG/DL (1.8-2.4); Phosphorous 2.8 MG/DL (2.5-4.9); Prealbumin 12.2 MG/DL (20-40)
[2016-09-25] MEDS: CEFEPIME 1,000 MG in SODIUM CHLORIDE 0.9% 100 ML IV SCH ×2 (10:33→22:08)
[2016-09-25] MEDS: LEVOFLOXACIN INJ 250 MG in PREMIX 1 EACH IV SCH (11:46)
[2016-09-25] MEDS: CHOLECALCIFEROL 1,000 UNIT TABLET PEG SCH (11:51)
[2016-09-25] MEDS: ASPIRIN EC 81 MG TABLET PO SCH (11:51)
[2016-09-25] MEDS: METOPROLOL TARTRATE 50 MG TABLET PEG SCH ×2 (11:51→22:09)
[2016-09-25] MEDS: levETIRAcetam LIQUID 100 MG/ML 30 ML/BOTTLE PEG SCH ×2 (11:52→22:10)
[2016-09-25] MEDS: MULTIVITAMIN LIQUID (CENTRUM) 60 ML BOTTLE PEG SCH (11:52)
[2016-09-25] MEDS: ENOXAPARIN 40 MG/0.4 ML SYRINGE SUBCUT SCH (11:52)
[2016-09-25] MEDS: DESITIN 4OZ/NYSTATIN 15 GRAM MIXTURE PASTE TOP SCH ×2 (11:53→22:10)
[2016-09-25] MEDS: SODIUM CHLORIDE 0.45% 1,000 ML IV SCH ×2 (12:07→16:30)
[2016-09-25] MEDS: VANCOMYCIN INJ 1,000 MG in SODIUM CHLORIDE 0.9% 250 ML IV SCH ×2 (12:07→12:57)
--- NOTE | 2016-09-25 16:36 | Hospitalist Progress Note ---
Assessment and Plan (1) Urinary tract infection Status: Acute Assessment and plan: Patient continue the same antibiotic with cefepime Levaquin and vancomycin reassess and comment on duration of his antibiotic tomorrow Current Visit: No (2) History of CVA (cerebrovascular accident) Status: Chronic Current Visit: No (3) Atrial fibrillation Status: Chronic Current Visit: Yes Hospitalist: Subjective Interval history: This is my first encounter with this patient; 61-year-old lady in the hospital admitted with sepsis healthcare associated pneumonia functional quadriplegia hyponatremia associated with these infection and acute situation to fibrillation. Patient does not vocalize anything but does track with eyes. No acute events reported to me in the for the last 24 hours duration. Exam - Constitutional Vitals: Period Temp Pulse Resp BP Sys/Jasmine Pulse Ox Last 24 Hr 98.0 F-100.8 F 65-84 20-24 95-115/47-57 95-100 General appearance: over weight, other (Incommunicado) - Head Head exam: Present: normocephalic, atraumatic - Eye Eye exam: Present: other (Anicteric sclera no conjunctival petechia) Pupils: Present: JUDE - ENT ENT exam: Present: other (Difficult to assess him secretion in the mild) - Neck Neck exam: Present: other (Generalized stiff) - Respiratory Respiratory exam: Present: other (Basilar rales no rhonchi no wheezing) - Cardiovascular Cardiovascular exam: Present: irregular rhythm, other (Rate less than 100) - GI/Abdominal GI/Abdominal exam: Present: other (Functional gastrostomy tube patient is having continuous tube feedings at this point) - Extremities Exam Extremities exam: Present: other (Functional quadriplegia) - Neurological Exam Neurological exam: Present: other (Functional quadriplegia and is incommunicado cannot comment on cognitive output identify that she cannot talk) - Psychiatric Psychiatric exam: Present: other (Unable to assess) - Skin Skin exam: Present: other (Does have some sweating patient has a PEG tube) Results - Labs CBC & BMP: 09/22/16 05:26 09/25/16 07:50 Lab Results: I have reviewed the past 24 hour labs (Stable chronic anemia thrombocytopenia and mild hyponatremia of 146 mmol/L is also elevated chloride ion 113)
[2016-09-25 17:23] LABS: INR 1.1; PT Patient Result 11.8 SECS
[2016-09-25] MEDS: PRAVASTATIN 20 MG TABLET PEG SCH (22:10)
[2016-09-26] MEDS: ALBUTEROL/IPRATROPIUM 3 ML NEB RESP TX SCH ×4 (00:10→19:10)
[2016-09-26] MEDS: VANCOMYCIN INJ 1,000 MG in SODIUM CHLORIDE 0.9% 250 ML IV SCH ×2 (03:43→21:30)
[2016-09-26] MEDS: SODIUM CHLORIDE 0.45% 1,000 ML IV SCH (07:26)
[2016-09-26] MEDS: MULTIVITAMIN LIQUID (CENTRUM) 60 ML BOTTLE PEG SCH (12:19)
[2016-09-26] MEDS: METOPROLOL TARTRATE 50 MG TABLET PEG SCH ×2 (12:20→21:30)
[2016-09-26] MEDS: ASPIRIN EC 81 MG TABLET PO SCH (12:20)
[2016-09-26] MEDS: CHOLECALCIFEROL 1,000 UNIT TABLET PEG SCH (12:20)
[2016-09-26] MEDS: ENOXAPARIN 40 MG/0.4 ML SYRINGE SUBCUT SCH (12:20)
[2016-09-26] MEDS: DESITIN 4OZ/NYSTATIN 15 GRAM MIXTURE PASTE TOP SCH ×2 (12:21→21:31)
[2016-09-26] MEDS: CEFEPIME 1,000 MG in SODIUM CHLORIDE 0.9% 100 ML IV SCH (12:32)
[2016-09-26] MEDS: LEVOFLOXACIN INJ 250 MG in PREMIX 1 EACH IV SCH (13:45)
--- NOTE | 2016-09-26 16:21 | Hospitalist Progress Note ---
Assessment and Plan (1) Urinary tract infection Status: Acute Assessment and plan: Patient continue the same antibiotic with cefepime Levaquin and vancomycin reassess and comment on duration of his antibiotic tomorrow Current Visit: No (2) History of CVA (cerebrovascular accident) Status: Chronic Assessment and plan: No new observations stable deficits Current Visit: No (3) Atrial fibrillation Status: Chronic Assessment and plan: Stable with a rate below 100 Current Visit: Yes Hospitalist: Subjective Interval history: Patient is seen and examined she is incommunicado history of a stroke. Admitted to the hospital because of concern of urinary tract infection and dehydration. She lives at a skilled care half-way. Blood cultures and urine cultures are negative to date. She seemed to be tending to optimal rehydration needing to be reassessed tomorrow for possible discharge if all the cultures remain negative Exam - Constitutional Vitals: Period Temp Pulse Resp BP Sys/Jasmine Pulse Ox Last 24 Hr 98.3 F-99.7 F 82-110 20-24 107-159/51-78 93-100 General appearance: over weight - Head Head exam: Present: other (Improve wasting) - Eye Eye exam: Present: EOMI Pupils: Present: JUDE - Neck Neck exam: Present: normal inspection - Respiratory Respiratory exam: Present: other (No rales distant lung sounds bilaterally) - Cardiovascular Cardiovascular exam: Present: regular rate and rhythm, other (No gallop) - GI/Abdominal GI/Abdominal exam: Present: other (Feeding tube in place positive bowel sounds) - Extremities Exam Extremities exam: Present: other (History of stroke from contrast) - Neurological Exam Neurological exam: Present: other (Patient is noncommunicating with a dense receptive aphasia and expressive aphasia following a stroke) - Psychiatric Psychiatric exam: Present: other (And noticed) - Skin Skin exam: Present: normal color, warm, dry Results - Labs CBC & BMP: 09/22/16 05:26 09/25/16 07:50 Lab Results: I have reviewed the past 24 hour labs (White count remains high but over the cultures are negative. Will repeat his CBC tomorrow)
[2016-09-26] MEDS: levETIRAcetam LIQUID 100 MG/ML 30 ML/BOTTLE PEG SCH (21:31)
[2016-09-26] MEDS: PRAVASTATIN 20 MG TABLET PEG SCH (21:31)
[2016-09-27] MEDS: ALBUTEROL/IPRATROPIUM 3 ML NEB RESP TX SCH ×2 (00:20→06:59)
[2016-09-27] MEDS: SODIUM CHLORIDE 0.45% 1,000 ML IV SCH (02:45)
[2016-09-27] MEDS: CEFEPIME 1,000 MG in SODIUM CHLORIDE 0.9% 100 ML IV SCH ×2 (02:45→11:31)
[2016-09-27] MEDS: levETIRAcetam LIQUID 100 MG/ML 30 ML/BOTTLE PEG SCH ×2 (07:22→08:40)
[2016-09-27] MEDS: CHOLECALCIFEROL 1,000 UNIT TABLET PEG SCH (08:40)
[2016-09-27] MEDS: METOPROLOL TARTRATE 50 MG TABLET PEG SCH (08:40)
[2016-09-27] MEDS: ASPIRIN EC 81 MG TABLET PO SCH (08:40)
[2016-09-27] MEDS: DESITIN 4OZ/NYSTATIN 15 GRAM MIXTURE PASTE TOP SCH (08:41)
[2016-09-27] MEDS: MULTIVITAMIN LIQUID (CENTRUM) 60 ML BOTTLE PEG SCH (08:41)
[2016-09-27] MEDS: LEVOFLOXACIN INJ 250 MG in PREMIX 1 EACH IV SCH (08:41)
[2016-09-27] MEDS: ENOXAPARIN 40 MG/0.4 ML SYRINGE SUBCUT SCH (08:41)
--- NOTE | 2016-09-27 11:51 | Discharge Summary ---
Diagnosis - Discharge Diagnosis (1) Urinary tract infection Status: Acute (2) History of CVA (cerebrovascular accident) Status: Chronic (3) Atrial fibrillation Status: Chronic Discharge Plan - Discharge Data Disposition: Disch/Xfer to Snf Condition at Discharge: Stable Discharge Diet: other Activity: other Hygiene: other Weight Bearing at Discharge: other Contact your physician if you experience:: fever over 101, Nausea/Vomiting, Shortness of breath - Discharge Medications Continue levETIRAcetam [Levetiracetam] 500 mg PEG BID Lactulose Liquid [Chronulac] 20 gm PEG Q8H PRN PRN Reason: Constipation Magnesium Hydroxide Susp [Milk of Magnesia] 30 ml PEG DAILY PRN PRN Reason: Constipation Tramadol HCl [Tramadol Tab] 50 mg PEG Q6H PRN PRN Reason: Pain Insulin Glargine [Lantus] 20 unit SUBCUT BEDTIME Metoprolol Tartrate Tab [Lopressor Tab] 50 mg PEG BID Diltiazem Tab [Cardizem Tab] 60 mg PEG QID Aspirin EC Tab 81 mg PEG DAILY Cholecalciferol [Vitamin D3] 1,000 unit PEG DAILY Acetaminophen Tab [Tylenol Tab] 325 mg PEG Q8H PRN PRN Reason: Pain Multivit &Minerals/Ferrous Fum [Multivitamin Liquid] 9 mg PEG DAILY Pravastatin Sodium 20 mg PEG BEDTIME Esomeprazole Magnesium [Nexium] 40 mg PEG DAILY Warfarin [Coumadin] 8 mg PEG DAILY@1800 Albuterol Neb [Proventil Neb] 1.25 mg RESP TX Q8H PRN PRN Reason: Shortness Of Breath/Wheezing Digoxin Tab [Lanoxin Tab] 0.125 mg PEG DAILY@1300 Insulin Lispro [HumaLOG] 0 - 12 unit SUBCUT ACHS Discontinued Glucagon 1 mg IM PRN PRN PRN Reason: GLUCOSE >60 - Follow Up or Referral - Forms/Instructions Exam - Constitutional Vitals: Period Temp Pulse Resp BP Sys/Jasmine Pulse Ox Last 24 Hr 98.3 F-99.3 F 82-110 17-28 95-159/54-78 93-100 General appearance: over weight - Head Head exam: Present: normal inspection - Eye Eye exam: Present: EOMI - Neck Neck exam: Present: normal inspection - Respiratory Respiratory exam: Present: clear to auscultation bilaterally - Cardiovascular Cardiovascular exam: Present: irregular rhythm - GI/Abdominal GI/Abdominal exam: Present: other (Functional PEG tube) - Extremities Exam Extremities exam: Present: other (History of stroke with hemiparesis side) - Neurological Exam Neurological exam: Present: other (The patient can track with eyes and to move her eyes she cannot talk she does seem to recept however) - Psychiatric Psychiatric exam: Present: other (Incommunicado) - Skin Skin exam: Present: warm, dry Discharge Results Procedures and tests throughout hospitalization: Pending Orders 09/21/16 10:16 Sputum Culture and Gram Stain Routine 09/27/16 14:30 Vancomycin,Trough Timed Labs on day of discharge: Labs from last 24 hours 09/27/16 09/27/16 09/26/16 10:52 08:47 19:14 POC Glucose 125 H 127 H 121 H 09/26/16 15:53 POC Glucose 120 H DS: Provider Date of admission: 09/21/16 10:04 Primary care physician: . No PCP Attending physician on admission: Eliazar Bass MD Consults: 09/21/16 10:27 Consult to Pharmacy [CONS] Routine Reason for Pharmacy Consult: Adjust Meds Renal Funct 09/21/16 11:58 Consult to Wound Care - [place] [CONS] Routine Reason for Wound Care: Wound Care Management Consult Comment: bilateral necrotic wounds 09/21/16 12:16 Consult to Dietitian [CONS] Routine Reason for Dietitian: Other 09/22/16 07:46 Consult to Pharmacy [CONS] Routine Reason for Pharmacy Consult: Dose/Manage Antibiotics Dose/Manage Vancomycin Discharging clinician: Jase Heller MD
[2016-09-27 12:08] VITALS: BP 119/70
== END 2016-09-27 13:32 | DRG 720 ==
LOC: N.ED 08:06 → SUATTDRO 10:04 → N.EDINP 10:36 → N.2E 11:42
PROVIDERS: ADMIT Family Medicine; ATTEND Internal Medicine Infectious Disease